=== PATIENT | female | born 1945 | race African-American/Black ===

== ENCOUNTER 2016-09-06 14:35 | Inpatient (IN) | payer MEDICARE ==
[~2016-09-06] VITALS: Ht 167.6 cm; Wt 73.8 kg
[~2016-09-06 14:35] MED LIST: CARDURA4 MG PO; CELEXA20 MG PO; METOPROLOL TAR100 M1 PO; NEPHRO-VITE RX1 TAB PO; NORVASC10 MG PO; PEPCID40 MG PO; PHOSLO667 MG PO
--- NOTE | 2016-09-06 15:15 | NUR ---
PT ARRIVED TO UNIT. VITALS SIGNS TAKEN. PT VERY HYPERTENSIVE @ 203/85 PT STATES SHE HASNT TAKEN HER BP MEDICATIONS AND REFUSES TO UNTIL AFTER SHE EATS. ORDERED PT TRAY AND WILL CONTINUE WITH ADMISSION WORK-UP.
[2016-09-06 15:25] VITALS: BP 203/85; BMI 27.0
[2016-09-06] MEDS ORDERED: SENSIPAR30 MG PO (15:25)
[2016-09-06 16:23] VITALS: BP 203/85
--- NOTE | 2016-09-06 17:26 | NUR ---
PT EATING AND TOOK HER HOME BP PILLS. BP NOW 184/79. PT DENIES ANY PAIN OR FURTHER NEEDS AT THIS TIME. CL IN REACH. WILL CTM.
[2016-09-06 17:27] VITALS: BP 184/79
[2016-09-06 21:31] VITALS: BP 177/73
[2016-09-07 00:11] VITALS: BP 169/71
[2016-09-07 05:06] LABS: BASOPHILS 0.3 % (0.0-2.0); EOSINOPHILS 1.8 % (0-7); HEMATOCRIT 30.4 % (36.0-48.0); HEMOGLOBIN 9.1 g/dL (12-16); IMMATURE GRANULOCYTES 0.6 % (0-5); LYMPHOCYTES 11.5 % (15-50); MCH 29.6 pg (26.0-34.0); MCHC 29.9 g/dL (31.0-37.0); MEAN PLATELET VOLUME 9.9 fL (7.4-10.4); MONOCYTES 18.9 % (2-11); NEUTROPHILS 66.9 % (40-80); RBC 3.07 10x6/uL (4.00-5.40); RDW 16.8 % (11.5-14.5); WBC 3.4 10x3/uL (4.8-10.8)
[2016-09-07 05:33] LABS: PLATELET COUNT 180 10x3/uL (130-400)
[2016-09-07 05:42] LABS: % SATURATION 37 % (15-55); IRON 44 ug/dl (35-150); TOTAL IRON BIND CAPACITY 116 ug/dl (260-445); UNSAT IRON BIND CAPACITY 72 ug/dl (150-375)
[2016-09-07 06:15] LABS: CALCIUM 10.1 mg/dL (8.5-10.1); CARBON DIOXIDE 30.9 mmol/L (21.0-32.0); CREATININE - SERUM 4.8 mg/dL (0.6-1.3); PHOSPHOROUS 5.6 mg/dL (2.5-4.9); POTASSIUM - SERUM 3.9 mmol/L (3.5-5.1); THYROID STIMULATING HORMONE 0.42 uIU/mL (0.36-3.74)
[2016-09-07 06:16] LABS: TROPONIN-I 0.06 ng/mL (0.000-0.060)
[2016-09-07 06:33] VITALS: BP 157/71
--- NOTE | 2016-09-07 06:35 | NUR ---
RESTING QUIETLY IN BED, NO DISTRESS NOTED
--- NOTE | 2016-09-07 06:52 | NUR ---
RECEIVED REPORT FROM SERVICER TRAVEL TRAILERS NURSE, GHULAM ALVARADO. PT IN BED, DENIES ANY NEEDS AT THIS TIME. CALL LIGHT IN REACH, NAD NOTED, WILL CONTINUE TO MONITOR.
[2016-09-07 07:52] VITALS: BP 176/76
--- NOTE | 2016-09-07 08:34 | NUR ---
ADMINISTERED MORNING MEDICATIONS, PT IS UP TO SIDE OF BED, PT DENIES ANY NEEDS AT THIS TIME.CALL LIGHT IN REACH, NAD NOTED, WILL CONTINUE TO MONITOR.
[2016-09-07 12:00] VITALS: BP 174/72
[2016-09-07 12:43] VITALS: Ht 167.6 cm; Wt 73.8 kg
--- NOTE | 2016-09-07 15:28 | NUR ---
WENT TO DO IN AND OUT CATH PT, REFUSED TO HAVE IN AND OUT CATH. STATED "THEY HURT AND I CAN STILL PEE". INFORMED PT THAT WE NEEDED TO COLLECT URINE SAMPLE AND THAT I WOULD PROVIDE HER WITH A HAT SO SHE COULD PEE AND WE COULD COLLECT URINE SAMPLE.
[2016-09-07 15:44] VITALS: BP 183/67
--- NOTE | 2016-09-07 16:24 | NUR ---
Patient Name: YUNIOR MADRIGAL Admission Status: Elective Accout number: [id number] Admission Date: 09-06-2016 : 1945 Admission Diagnosis: Attending: AKASH Current LOS: 1 Anticipated DC Date: 09-09-2016 Planned Disposition: Jail Facility Primary Insurance: MEDICARE A & B PLANNED EXTERNAL PROVIDER: [facility]: MEDICARE REHAB BED Discharge Planning Comments: * Is the patient Alert and Oriented? Yes 0 * How many steps to enter\exit or inside your home? 3 0 * PCP DR. MAGAÑA IN [place] 0 * Pharmacy [facility] IN [place] 0 * Preadmission Environment Home Alone 0 * ADLs Independent 0 * Equipment Cane Walker 0 * Other Equipment NO MEDICAL EQUIPMENT PROVIDER PREFERNCE 0 * List name and contact numbers for known caregivers / representatives who currently or will assist patient after discharge: DONAVON MADRIGAL , SON, 0 * Community resources currently utilized Other 0 * Please name any agencies selected above. [facility], [facility], OUTPATIENT DIALYSIS, [facility] IN [place], M/W/F, 0645AM 0 * Additional services required to return to the preadmission environment? Yes * Can the patient safely return to the preadmission environment? No 0 * Has this patient been hospitalized within the prior 30 days at any hospital? No 0 CM MET WITH PT IN ROOM TO DISCUSS DISCHARGE PLANNING AND NEEDS. PT REPORTS LIVING AT HOME INDEPENDENTLY AND ALONE. PT HAS CANE AND WALKER ONLY WITH NO MEDICAL EQUIPMENT PROVIDER PREFERENCE. PT HAD [facility] PRIOR TO ADMISSION. CM DISCUSSED AVAILABILITY OF HOME HEALTH, REHAB SERVICES AND MEDICAL EQUIPMENT. PT REPORTS BEING VERY WEAK AND NEEDING REHAB; PT WOULD LIKE REFERRAL SENT TO [facility] ([facility]) IN [place] FOR REHAB SERVICES. CM AGAIN DISCUSSED INPATIENT REHAB, PT IS NO INTERESTED IN INPATIENT REHAB HERE, WANTS [facility] IT IS NEW AND CLOSE TO HER SON'S HOME IN [place]. IMPORTANT MESSAGE FROM MEDICARE PROVIDED AND EXPLAINED. CM CALLED [facility], [address] [place] [phone], SPOKE TO AMY WHO REPORTS REHAB BED AVAILABLE AND WILL SCREEN PT FOR REHAB ADMISSION. CM FAXED REFERRAL TO [facility], . CM WAITING ADMISSION DETERMINATION FROM [facility] (NURSING HOME FACILITY) IN [place]. Lithographing Machine Operator: David Palacio
[2016-09-07 18:07] LABS: APPEARANCE HAZY (CLEAR); BILIRUBIN NEGATIVE (NEGATIVE); COLOR YELLOW (YELLOW); GLUCOSE NEGATIVE (NEGATIVE); KETONE NEGATIVE (NEGATIVE); LEUKOCYTE ESTERASE 1+ (NEGATIVE); NITRITE NEGATIVE (NEGATIVE); PROTEIN 1+ mg/dL (NEGATIVE); UROBILINOGEN NORMAL (NORMAL)
[2016-09-07 18:08] LABS: BACTERIA MANY /hpf (NONE SEEN); RED CELLS - URINE 0-5 /hpf (0-5)
--- NOTE | 2016-09-07 19:03 | NUR ---
SITTING UP IN BED, AAOX3, SKIN WARM AND DRY, RESP UNLABORED, MOOD PLEASANT, NO DISTRESS NOTED
[2016-09-07 20:33] VITALS: BP 174/63
[2016-09-08 00:32] VITALS: BP 150/75
[2016-09-08 04:42] VITALS: BP 150/103
--- NOTE | 2016-09-08 05:40 | NUR ---
RESTING QUIETLY IN BED, NO DISTRESS NOTED
[2016-09-08 05:44] LABS: BASOPHILS 0.3 % (0.0-2.0); HEMATOCRIT 31.6 % (36.0-48.0); HEMOGLOBIN 9.5 g/dL (12-16); IMMATURE GRANULOCYTES 0.6 % (0-5); LYMPHOCYTES 12.5 % (15-50); MCH 29.7 pg (26.0-34.0); MCHC 30.1 g/dL (31.0-37.0); MCV 98.8 fL (80.0-100.0); MONOCYTES 17.3 % (2-11); NEUTROPHILS 67.3 % (40-80); PLATELET COUNT 199 10x3/uL (130-400); RDW 16.7 % (11.5-14.5); WBC 3.5 10x3/uL (4.8-10.8)
[2016-09-08 06:13] LABS: ANION GAP 14.7 mmol/L (8-16); CALCIUM 9.4 mg/dL (8.5-10.1); CREATININE - SERUM 6.3 mg/dL (0.6-1.3); PHOSPHOROUS 5.2 mg/dL (2.5-4.9); POTASSIUM - SERUM 3.7 mmol/L (3.5-5.1)
--- NOTE | 2016-09-08 06:21 | NUR ---
PT LAYING IN BED NO DISTRESS OBSERVED CALL LIGHT INR EACH SRX2 BED LOW AND LOCKED WILL MONITOR
--- NOTE | 2016-09-08 06:52 | NUR ---
RECEIVED REPORT FROM THREE DIMENSIONAL MAP MODELER NURSE, GHULAM ALVARADO. PT UP TO SIDE OF BED, STATES THAT SHE IS HUNGRY, INFORMED HER THAT BREAKFAST SHOULD BE COMING AROUND 8 THAT IF SHE WANTED SOME GRAM CRACKER OR A SNACK, PT STATED THAT SHE WOULD BED FINE UNTIL BREAKFAST. PT DENIES ANY OTHER NEEDS AT THIS TIME. CALL LIGHT IN REACH, NAD NOTED, WILL CONTINUE TO MONITOR.
[2016-09-08 08:00] VITALS: BP 186/109
--- NOTE | 2016-09-08 08:19 | NUR ---
ADMINSITERED MORNING MEDICATIONS, PT UP TO SIDE OF BED EATING BREAKFAST. PT DENIES ANY NEEEDS AT THIS TIME. CALL LIGHT IN REACH, NAD NOTED, WILL CONTINUE TO MONITOR.
--- NOTE | 2016-09-08 10:15 | NUR ---
PT TRANSFERED TO DIALYSIS VIA WHEELCHAIR, NAD NOTED.
--- NOTE | 2016-09-08 11:33 | NUR ---
Patient Name: YUNIOR MADRIGAL Encounter No: [id number] : 1945 Primary Insurance: MEDICARE A & B Anticipated DC Date: 09-09-2016 Planned Disposition: Assisted Facility External Planned Provider: [facility], MEDICARE REHAB BED DCP follow-up note: CM RECEIVED CALL FROM AMY OF [facility], [address] [place] [phone], WHO REPORTS REHAB BED AVAILABLE AND WILLACCEPT PT FOR REHAB ADMISSION 09-09-16. CM FAXED REFERRAL TO [facility], . CM CALLED AND SPOKE TO DR. AVILEZ, NOTIFIED OF REHAB ACCEPTANCE FOR TOMORROW. CM SPOKE TO PT IN ROOM WHO IS IN AGREEMENT WITH REHAB DISCHARGE TOMORROW. FOR DISCHARGE, CM TO FAX DISCHARGE INFORMATION TO [facility], . NURSE REPORT TO BE CALLED TO [phone]. [facility] TO ARRANGE VAN GRINDING MACHINE OPERATOR FOR THE MORNING, 09-09-16. Pediatric Physician Assistant: David Palacio
--- NOTE | 2016-09-08 12:58 | NUR ---
CLEANED RIGHT THIGH SORE WITH WOUND CLEANSER AND APPLIED SMALL MEPILEX DRESSING TO SITE. SCD'S ON BILAT AT THIS TIME. PROVIDED PT WITH A CUP OF ICE. PT DENIES ANY NEEDS AT THIS TIME. CALL LIGHT IN REACH, NAD NOTED, WILL CONTINUE TO MONITOR.
--- NOTE | 2016-09-08 12:58 | NUR ---
[facility] - Patient's OPHD clinic is [facility] on MWF @ 6:45am. Per CM the patient is scheduled to d/c to [facility] tomorrow 09/09/16. OPHD has been notified to expect the patient back in-center on Tuesday. LORIE PRL
--- NOTE | 2016-09-08 14:31 | NUR ---
PT TRANSFERED BACK TO ROOM 2124, VIA WHEELCHAIR, NAD NOTED, PT DENIES ANY NEEDS AT THIS TIME. CALL LIGHT IN REACH, NAD NOTED, WILL CONTINUE TO MONITOR.
[2016-09-08 16:00] VITALS: BP 149/96
--- NOTE | 2016-09-08 16:09 | NUR ---
PT C/O REALLY BAD DRY HACKING COUGH, PAGED GABRIEL TRIMBLE RENAL LABORER CHEESEMAKING, WAITING ON HER TO CALL BACK.
--- NOTE | 2016-09-08 16:39 | NUR ---
DIALYSIS TREATMENT INITIATED VIA RIGHT AVG AT 1052 AND DISCONTINUED AT 1355. BLOOD FLOW RATE WAS ONLY 200. THEREFORE ONLY PROCESSING 33.3 LITERS OF BLOOD. REMOVED 2000 ML OF FLUID. POST VITALS: BP:179/987, HR: 80, TEMP: 98.6, RESP: 16.
--- NOTE | 2016-09-08 18:18 | NUR ---
CECIL MOJICA ON BILAT, PT DENIES ANY NEEDS AT THIS TIME. CALL LIGHT IN REACH, NAD NOTED, WILL CONTINUE TO MONITOR.
--- NOTE | 2016-09-08 19:03 | NUR ---
SITTING UP IN BED, AAOX3, SKIN WARM AND DRY, RESP UNLABORED, NO DISTRESS NOTED
[2016-09-08 20:00] VITALS: BP 169/81
--- NOTE | 2016-09-09 03:56 | NUR ---
CHILLING HOOD OPERATOR AT BEDSIDE TO OBTAIN VITALS, CALL LIGHT IN REACH. WILL CONTINUE WITH PLAN OF CARE.
[2016-09-09 04:00] VITALS: BP 173/69
[2016-09-09 06:11] LABS: BASOPHILS 0.3 % (0.0-2.0); EOSINOPHILS 2.1 % (0-7); HEMOGLOBIN 10.1 g/dL (12-16); IMMATURE GRANULOCYTES 0.5 % (0-5); LYMPHOCYTES 13.8 % (15-50); MCH 29.3 pg (26.0-34.0); MCHC 29.7 g/dL (31.0-37.0); MCV 98.6 fL (80.0-100.0); MEAN PLATELET VOLUME 10.5 fL (7.4-10.4); MONOCYTES 17.4 % (2-11); NEUTROPHILS 65.9 % (40-80); PLATELET COUNT 192 10x3/uL (130-400); RBC 3.45 10x6/uL (4.00-5.40); RDW 16.5 % (11.5-14.5); WBC 3.8 10x3/uL (4.8-10.8)
--- NOTE | 2016-09-09 06:24 | NUR ---
RESTING QUIETLY IN BED, NO DISTRESS NOTED
[2016-09-09 06:32] LABS: ANION GAP 13.7 mmol/L (8-16); CALCIUM 10.3 mg/dL (8.5-10.1); CARBON DIOXIDE 30.5 mmol/L (21.0-32.0); CREATININE - SERUM 5.8 mg/dL (0.6-1.3); PHOSPHOROUS 4.4 mg/dL (2.5-4.9); POTASSIUM - SERUM 4.2 mmol/L (3.5-5.1)
--- NOTE | 2016-09-09 07:48 | NUR ---
PT SITTING UP IN BED DENIES NEEDS AT THIS TIME WILL CONTINUE TO MONITOR.
[2016-09-09 08:14] VITALS: BP 169/76
--- NOTE | 2016-09-09 08:46 | NUR ---
Patient Name: YUNIOR MADRIGAL Encounter No: [id number] : 1945 Primary Insurance: MEDICARE A & B Anticipated DC Date: 09-09-2016 Planned Disposition: Assisted Facility External Planned Provider: [facility], ASSISTED FACILITY; MEDICARE REHAB BED DCP follow-up note: FAVIO CALLED AMY OF [facility], [address] [place] [phone], WHO REPORTS REHAB BED AVAILABLE AND WILL ACCEPT PT FOR REHAB ADMISSION TODAY, VAN ON THE WAY NOW. CM FAXED DISCHARGE INFORMATION TO [phone]. CM SPOKE TO PT IN ROOM WHO IS IN AGREEMENT WITH REHAB DISCHARGE TODAY. NURSE REPORT TO BE CALLED TO [phone]. [facility] VAN FISH CAKE MAKER AT [place] 1000 AM. Bleacher [employer]: David Palacio
[2016-09-09] MEDS ORDERED: RENVELA0.8 GM PO (09:04)
[2016-09-09] MEDS ORDERED: NORVASC5 MG PO (09:05)
[2016-09-09] MEDS ORDERED: HYDRALAZINE HCL50 MG PO (09:06)
[2016-09-09] MEDS ORDERED: LEVAQUIN250 MG PO (09:18)
--- NOTE | 2016-09-09 10:25 | NUR ---
CALLED REPORT TO [facility]. [facility] HERE TO GET PT WHEELED PT OUT ALONG WITH ALL OF HER BELONGINGS. GAVE YELLOW ENVELOPE WITH DC PAPERS TO [facility] EMPLOYEES.
--- NOTE | 2016-09-10 06:29 | DS ---
PATIENT:YUNIOR MADRIGAL :[birth year] MEDICAL RECORD: [id number] DISCHARGE SUMMARY ADMISSION DATE: 09/06/16 DISCHARGE DATE: 09/09/16 HISTORY OF PRESENT ILLNESS: Ms. Madrigal is a pleasant 70-year-old black female that dialyzes in [place], brought to [facility] by the family with findings of confusion and fatigue post-dialysis with no history of trauma, etc. HOSPITAL COURSE: The patient was found to have urinary tract infection, begun on antibiotic therapy. Chest x-ray was stable with simplification of her medication regime. Her mental status and fatigue also improved. Thyroid functions were normal and she was back to baseline at the time of transfer to the [facility]. She underwent acute dialysis uneventfully. Chest x-ray was stable and no other major issues involved. DISCHARGE DIAGNOSES: 1. Urinary tract infection. 2. Drug side effect. 3. End-stage renal disease. 4. Hypertension. 5. Chronic anemia. PLAN: The patient will be discharged today to the [facility]. She will resume dialysis in [place] on a Tuesday, Tuesday and Tuesday schedule. We will see her on a weekly basis. She will resume her renal diet. DISCHARGE MEDICATIONS: Nephro-Bo 1 daily, Levaquin 250 daily for 3 more days. She will resume her erythropoietin in the dialysis unit. She will be on amlodipine 5 mg b.i.d., Pepcid 40 mg daily, Renvela 800 t.i.d., metoprolol 100 b.i.d. and she will also be on hydralazine 50 b.i.d. TRANSINT:[id number] Voice Confirmation ID: [id number] DOCUMENT ID: [id number] CHANDRIKA AVILEZ MD at 0629 CC: [id number] DICTATION DATE: 09/09/16 0704 AUTISM SPECIALIST: 09/09/16 0735 DIS IN 09/09/16 [place] [id number]
--- NOTE | 2016-09-27 15:45 | EC ---
PATIENT:YUNIOR MADRIGAL DATE OF SERVICE: 09/06/16 SEX: F MEDICAL RECORD: [id number] DATE OF : [birth year] LOCATION:D. D.212 AGE OF PATIENT: 70 ADMISSION DATE: 09/06/16 REFERRING PHYSICIAN: INTERPRETING PHYSICIAN: LAURA RASCON M.D. ECHOCARDIOGRAM REPORT ECHO CHARGES 4 ECHO COMPLETE CLINICAL DIAGNOSIS: MURMUR ECHOCARDIOGRAPHIC MEASUREMENTS (adult normal given) AC root (d.<3.7cm) 3.7 LV Septum d (<1.2 cm> 2.0 Valve Excursion 1.5 LV Septum (systole) 2.2 Left Atria (s.<4.0cm> 5.7 LVPW d(<1.2cm) 1.6 RV (d.<2.3cm) 5.1 LVPW (sytole) 1.9 LV diastole(<5.6CM) 6.5 MV E-F(>70mm/sec) LV systole 3.3 LVOT Diameter 1.4 MV exc.(>10mm) 1.6 Est.ejection fraction (50-75%) Pericardial Effusion Y DOPPLER: LVIT A 129 E 146 LA RVSP 46 LVOT 103 AOP1/2T 807 Asc. Ao 296 RVOT 123 RA 157 PA AV Gradient Peak 35.15 AV Mean 15.76 AV Area 0.6 MV Gradient Peak 13.70 MV Mean 5.73 MV Area COMMENTS: Tin Flopper: Karley MANZO Renewals Specialist:2 Dr. Rascon TAPE# PACS DATE OF SERVICE: 09/07/2016 REFERRING PHYSICIAN: Louie Teran MD INDICATION: Murmur. DESCRIPTION: Left ventricle is mildly dilated. Left ventricular hypertrophy is present. Estimated ejection fraction is in the order of 55%. Mitral valve leaflets are thickened. There is mild regurgitation noted. Left atrium is moderately dilated. The aortic valve is trileaflet. Leaflets are thickened. ECHOCARDIOGRAM REPORT [id number] YUNIOR MADRIGAL The peak gradient across the valve is ____ mmHg with a mean of 50 mmHg. The valve area was calculated at 0.6 cm-squared. Right ventricle is moderately dilated. Tricuspid valve is structurally normal. There is mild regurgitation seen. Right ventricular systolic pressure is elevated at 46 mmHg. There is a small pericardial effusion noted. There is no evidence of any tamponade. There is no evidence of any signs of volume overload. It is not concentric. IMPRESSION: 1. Left ventricular hypertrophy with preserved ejection fraction of 55%. 2. Mild mitral regurgitation with mild mitral stenosis. 3. Moderate aortic stenosis. 4. Mild tricuspid regurgitation. TRANSINT:[id number] Voice Confirmation ID: [id number] DOCUMENT ID: [id number] LAURA RASCON M.D. at 1545 CC: [id number] DICTATION DATE: 09/07/16 1619 WEB SYSTEMS DEVELOPER: 09/08/16 0110 DIS IN 09/09/[address] [facility] [address] [place] [address]
== END 2016-09-09 10:27 | DRG 947 ==
LOC: D.M2 14:35
PROVIDERS: Internal Medicine Nephrology; ADMIT Internal Medicine Nephrology
PROC: 5A1D60Z (ICD-10-PCS; principal; 2016-09-06)
DX: R53.1 Weakness (principal); N18.6 End stage renal disease; N39.0 Urinary tract infection, site not specified; I12.0 Hypertensive chronic kidney disease with stage 5 chronic kidney disease or end stage renal disease; T50.995A Adverse effect of other drugs, medicaments and biological substances, initial encounter; Z99.2 Dependence on renal dialysis; J44.9 Chronic obstructive pulmonary disease, unspecified; F32.9 Major depressive disorder, single episode, unspecified; R41.0 Disorientation, unspecified; Z86.73 Personal history of transient ischemic attack (TIA), and cerebral infarction without residual deficits

== ENCOUNTER 2017-01-11 14:44 | Inpatient (IN) | payer MEDICARE ==
[~2017-01-11] VITALS: Ht 167.6 cm; Wt 63.5 kg
--- NOTE | ~2017-01-11 | DS ---
PATIENT:YUNIOR MADRIGAL :[birth year] MEDICAL RECORD: [id number] DISCHARGE SUMMARY ADMISSION DATE: 01/11/17 DISCHARGE DATE: 01/14/17 REASON FOR ADMISSION: Left upper extremity weakness and change in function. She was evaluated in the [facility] with watershed distribution of the CVA with left-sided weakness. She is evaluated here by cardiovascular surgery and too high risk for intervention. She had declined Lovenox and I had a discussion with her son yesterday regarding Coumadin versus Plavix and aspirin. He made a decision and does understand that she could have another CVA either way whether taking Coumadin, Plavix or aspirin. Coumadin would have been more prevented, but does come with higher risks, he decided with just aspirin and Plavix. REVIEW OF SYSTEMS: She is 139/64, 99 temp, 74 pulse, 18 respiratory rate. She follows commands and offers her right arm for dialysis. Her dialysis access in the arm is clean with no sign of infection. Chest is regular rhythm. S1, S2. No change in her upper extremity and lower extremity weakness on the stroke affected side. Abdomen is nontender. Trace lower extremity edema. All review of systems are negative according to the patient except for generalized weakness. We have not seen any further symptoms of loose stools that were mentioned on admission. PLAN: We will continue her ____ on medications as we are just sending her down to rehab. No changes in her meds. Continue renal diet and therapy per rehab. Spent greater than 30 minutes with dictation and medication list. TRANSINT:[id number] Voice Confirmation ID: [id number] DOCUMENT ID: [id number] JARED MATA MD CC: [id number] DICTATION DATE: 01/14/17 115 SILK SOAKER: 01/15/17 0509 DIS IN 01/14/17 [facility] [address] [place] [address]
[~2017-01-11 14:44] MED LIST changes: +HYDRALAZINE HCL50 MG PO; +LEVAQUIN250 MG PO; +NORVASC5 MG PO; +RENVELA0.8 GM PO; +SENSIPAR30 MG PO
[2017-01-11 15:41] LABS: BASOPHILS 0.5 % (0-2); EOSINOPHILS 3.1 % (0-7); HEMATOCRIT 35.6 % (36.0-48.0); HEMOGLOBIN 10.6 g/dL (12-16); IMMATURE GRANULOCYTES 0.7 % (0-5); LYMPHOCYTES 15.5 % (15-50); MCH 31.5 pg (26.0-34.0); MCHC 29.8 g/dL (31.0-37.0); MEAN PLATELET VOLUME 10.1 fL (7.4-10.4); MONOCYTES 10.4 % (2-11); NEUTROPHILS 69.8 % (40-80); PLATELET COUNT 159 10x3/uL (130-400); RBC 3.36 10x6/uL (4.00-5.40); RDW 16.7 % (11.5-14.5); WBC 5.5 10x3/uL (4.8-10.8)
[2017-01-11 16:01] LABS: ANION GAP 13.5 mmol/L (8-16); BILIRUBIN - TOTAL 0.62 mg/dL (0.2-1.3); CALCIUM 10.1 mg/dL (8.5-10.1); CREATININE - SERUM 5.7 mg/dL (0.6-1.3); POTASSIUM - SERUM 4.5 mmol/L (3.5-5.1); PROTEIN - SERUM 6.8 g/dL (6.4-8.2)
[2017-01-12 02:49] VITALS: BP 148/75; BMI 22.9
[2017-01-12 09:01] VITALS: BP 154/88
[2017-01-12 12:00] VITALS: BP 154/64
[2017-01-12 19:00] VITALS: BP 127/67
[2017-01-13 04:00] VITALS: BP 141/77
[2017-01-13 06:29] LABS: BASOPHILS 0.5 % (0-2); EOSINOPHILS 3.3 % (0-7); HEMATOCRIT 33.3 % (36.0-48.0); IMMATURE GRANULOCYTES 0.7 % (0-5); LYMPHOCYTES 20.5 % (15-50); MCH 31.6 pg (26.0-34.0); MCV 105.4 fL (80.0-100.0); MEAN PLATELET VOLUME 10.9 fL (7.4-10.4); MONOCYTES 10.6 % (2-11); NEUTROPHILS 64.4 % (40-80); PLATELET COUNT 180 10x3/uL (130-400); RBC 3.16 10x6/uL (4.00-5.40); RDW 16.4 % (11.5-14.5); WBC 5.5 10x3/uL (4.8-10.8)
[2017-01-13 07:27] LABS: CALCIUM 9.8 mg/dL (8.5-10.1); CARBON DIOXIDE 29.7 mmol/L (21.0-32.0); T4 THYROXIN - FREE 1.37 ng/dL (0.76-1.46); THYROID STIMULATING HORMONE 1.31 uIU/mL (0.36-3.74)
[2017-01-13 07:31] LABS: POTASSIUM - SERUM 3.7 mmol/L (3.5-5.1)
[2017-01-13 08:44] VITALS: BP 139/64
[2017-01-13 12:57] VITALS: BP 114/69
[2017-01-13 14:55] VITALS: Ht 167.6 cm; Wt 63.5 kg
[2017-01-13 17:00] VITALS: BP 110/77
[2017-01-13 20:00] VITALS: BP 115/38
[2017-01-14] VITALS: BP 137/25
[2017-01-14 04:00] VITALS: BP 140/67
[2017-01-14 06:16] LABS: BASOPHILS 0.1 % (0-2); EOSINOPHILS 2.3 % (0-7); HEMATOCRIT 32.2 % (36.0-48.0); HEMOGLOBIN 9.9 g/dL (12-16); IMMATURE GRANULOCYTES 0.4 % (0-5); LYMPHOCYTES 7.4 % (15-50); MCH 31.5 pg (26.0-34.0); MCHC 30.7 g/dL (31.0-37.0); MCV 102.5 fL (80.0-100.0); MEAN PLATELET VOLUME 10.6 fL (7.4-10.4); MONOCYTES 19.5 % (2-11); NEUTROPHILS 70.3 % (40-80); PLATELET COUNT 144 10x3/uL (130-400); RBC 3.14 10x6/uL (4.00-5.40); RDW 16.3 % (11.5-14.5)
[2017-01-14 06:21] LABS: ANION GAP 16.1 mmol/L (8-16); CALCIUM 9.5 mg/dL (8.5-10.1); POTASSIUM - SERUM 4.1 mmol/L (3.5-5.1)
[2017-01-14 06:26] LABS: CREATININE - SERUM 6.7 mg/dL (0.6-1.3)
[2017-01-14 08:58] VITALS: BP 109/56
[2017-01-14 11:43] VITALS: BP 117/57
[2017-01-14] MEDS ORDERED: PLAVIX75 MG PO (17:08)
[2017-01-14] MEDS ORDERED: PROCRIT/EP4000 UNITS SQ (17:08)
[2017-01-14] MEDS ORDERED: HEPARIN SO1000 UNIT/ IV ×2 (17:09→17:10)
[2017-01-14] MEDS ORDERED: BUMINATE50 ML IV (17:09)
[2017-01-14] MEDS ORDERED: BAYER CHEWABLE81 MG PO (17:11)
[2017-01-14] MEDS ORDERED: SODIUM CL 0.91000 ML IV (17:12)
[2017-01-14] MEDS ORDERED: LIDOCAINE-PRILOC5 GM TP (17:14)
== END 2017-01-14 17:53 | DRG 67 ==
LOC: D.ER 14:44 → D.MS 17:33
PROVIDERS: Emergency Medicine; ADMIT Internal Medicine Nephrology
PROC: 5A1D00Z (ICD-10-PCS; principal; 2017-01-12)
DX: I65.23 Occlusion and stenosis of bilateral carotid arteries (principal); N18.6 End stage renal disease; I12.0 Hypertensive chronic kidney disease with stage 5 chronic kidney disease or end stage renal disease; I82.C11 Acute embolism and thrombosis of right internal jugular vein; I69.354 Hemiplegia and hemiparesis following cerebral infarction affecting left non-dominant side; R53.1 Weakness; Z99.2 Dependence on renal dialysis; I65.09 Occlusion and stenosis of unspecified vertebral artery; I69.398 Other sequelae of cerebral infarction; K21.9 Gastro-esophageal reflux disease without esophagitis; F32.9 Major depressive disorder, single episode, unspecified; J44.9 Chronic obstructive pulmonary disease, unspecified; I73.9 Peripheral vascular disease, unspecified; D63.1 Anemia in chronic kidney disease

== ENCOUNTER 2017-01-14 18:33 | Inpatient (IN) | payer MEDICARE ==
[~2017-01-14] VITALS: Ht 167.6 cm; Wt 61.1 kg
--- NOTE | ~2017-01-14 | RHP ---
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 HISTORY OF PRESENT ILLNESS: The patient admitted to inpatient rehab for watershed. She had an infarct to the right cerebral hemisphere with left-sided weakness. She is a 71-year-old female with a history of end-stage renal disease on hemodialysis. She has become more confused and weak for the past couple of months. She recently had a CVA in December and did not receive any treatment at that time for CVA and since then, has been much weaker and confused. She is now incontinent of stool. She was brought to the ER and evaluated, was admitted with generalized weakness and AMS. She lives at home with her son and was able to perform her own ADLs and did short distance ambulation with use of assistance device and also usable wheelchair prior to her CVA in December. She is currently max to total assist for ADLs and max assist to total assist for mobility. She and her son would like for the patient to strengthen up here so that she can return home and live with her son. COMORBIDITIES: Include oropharyngeal dysphagia, end-stage renal disease, COPD, mild CHF, hypertension, depression, weakness, peripheral vascular disease, altered mental status, thrombocytosis, carotid stenosis and anemia. PAST MEDICAL HISTORY: Significant for end-stage renal disease, CVA, Cowart's palsy, difficulty swallowing, hypertension, NC, heart valve replacement, chronic cough, acid reflux, depression and carotid stenosis. PAST SURGICAL HISTORY: Includes gallbladder surgery, D&C and hemodialysis access. ALLERGIES: No known drug allergies. CURRENT MEDICATIONS: Include Procrit 12,000 units subQ 3 times a week, sevelamer 1600 mg t.i.d. with meals, folic acid 1 mg daily, Pepcid 40 mg daily, Plavix 75 mg daily, aspirin chewable 81 mg daily, metoprolol 100 mg b.i.d., Emla to use topically as needed, amlodipine 5 mg b.i.d., albumin 12.5 grams on dialysis days and MiraLax 17 grams in 8 ounces of water daily. HABITS: No alcohol or tobacco use. FAMILY HISTORY: Noncontributory. SOCIAL HISTORY: The patient hopes to return back home with her son and get back to her prior level of functioning. REVIEW OF SYSTEMS: GENERAL: Does complain of weakness and fatigue. HEENT: Denies cold, cough, or congestion. CARDIOVASCULAR: Denies chest pain. HISTORY AND PHYSICAL [id number] YUNIOR MADRIGAL PHYSICAL EXAMINATION: VITAL SIGNS: Stable, afebrile. GENERAL: An elderly female, in no acute distress, alert upon exam. HEENT: Normocephalic and atraumatic. Mucosa moist. NECK: Supple. No lymphadenopathy. LUNGS: Clear at this time. HEART: Regular rate and rhythm. ABDOMEN: Benign. EXTREMITIES: No clubbing, cyanosis or edema. NEUROLOGIC: Seems intact. LABORATORY DATA: Her white count is 8.5, H&H of 11 and 36, and platelet count was noted be 209. Sodium 136, potassium 4.4, BUN and creatinine of 21 and 5.1 and blood sugars noted to be 97. ASSESSMENT: This is a 71-year-old female patient, who presents secondary to a watershed infarct in the right cerebral hemisphere. The patient has potential to make improvement. We instituted the following multidisciplinary therapies including to, but not limited to physical, occupational, respiratory, speech, nutritional services, prosthetics and orthotics. Given her complex condition and risk for more complications, rehabilitation services cannot be provided at a low level of care such as a alf facility. PLAN: 1. Admit to [facility] rehab for intensive inpatient therapy to include the following disciplines: A. Physical therapy to improve gait, all transfer skills and bed mobility to a modified level. B. Occupational therapy to improve activities of daily living modified independent level. C. Case management to assist with discharge planning and placement options. D. Nutrition to assist with nutritional needs. E. Rehabilitation nursing to assist in monitoring the patient's underlying medical conditions and to assist with any type of bowel or bladder management. 2. The patient's current medication and medical care will be continued. 3. The patient will be placed on standard fall precautions. 4. The patient's estimated length of stay is approximately 7-10 days. 65. We will go ahead and follow right along with renal during this patient's stay and treat appropriately. TRANSINT:[id number] Voice Confirmation ID: [id number] DOCUMENT ID: [id number] REBECCA notes whether there has been none or any medical/functional change since admission: - REBECCA attests patient continues to be appropriate for IRF: - HISTORY AND PHYSICAL [id number] YUNIOR MADRIGAL SCOTT MD CC: [id number] DICTATION DATE: 01/15/17 172 PATIENT SAFETY MANAGER: 01/15/171921 ADM IN [place] [id number] [place] [id number]
[~2017-01-14 18:33] MED LIST changes: +BAYER CHEWABLE81 MG PO; +BUMINATE50 ML IV; +HEPARIN SO1000 UNIT/ IV; +LIDOCAINE-PRILOC5 GM TP; +PLAVIX75 MG PO; +PROCRIT/EP4000 UNITS SQ; +SODIUM CL 0.91000 ML IV
--- NOTE | 2017-01-14 19:15 | NUR ---
PT. CAME TO THE FLOOR AT 1830 PER REPORT AND WILL BE ADMITTED SOON ALL PAPERS ARE AVAILABLE. MEDICATIONS HAVE BEEN REVIEWED AND WILL BE ORDERED PER MD'S ORDERS. INFORMED PT. OF ADMISSION PROCESS AND SHE ACKNOWLEDGED UNDERSTANDING. CALL LIGHT WITHIN HER REACH FOR NEEDS SHE DENIES ANY NEEDS AT THIS TIME.
--- NOTE | 2017-01-14 23:17 | NUR ---
PT. IN BED WITH HOB UP FOR COMFORT LYING ON HER LEFT SIDE. EYES CLOSED AND RESP. DEEP AND EVEN. CALL LIGHT WITHIN REACH.
--- NOTE | 2017-01-15 00:28 | NUR ---
PT. IN BED LYING ON HER LEFT SIDE PREVIOUSLY REQUESTED. HOB UP FOR COMFORT WITH EYES CLOSED AND RESP. DEEP AND EVEN. CALL LIGHT WITHIN REACH.
[2017-01-15 00:34] VITALS: BP 121/70; BMI 20.7
[2017-01-15 01:09] VITALS: BP 121/70
--- NOTE | 2017-01-15 03:27 | NUR ---
PT. IN BED WITH HOB UP FOR COMFORT WITH EYES CLOSED AND RESP. EVEN. CALL LIGHT WITHIN REACH.
--- NOTE | 2017-01-15 06:03 | NUR ---
MADE PT. SOME NECTAR THICK WATER AND SHE REFUSED TO DRINK ANY AT ALL. ASKED IF SHE WAS READY TO TURN ONTO THE RIGHT SIDE AND SHE SHOOK HER HEAD NO. ASKED IF SHE NEEDED ANYTHING AND SHE SHOOK HER HEAD NO. CALL LIGHT WITHIN REACH.
[2017-01-15 09:07] LABS: BASOPHILS 0.1 % (0-2); EOSINOPHILS 0.6 % (0-7); HEMATOCRIT 36.3 % (36.0-48.0); IMMATURE GRANULOCYTES 0.2 % (0-5); LYMPHOCYTES 7.4 % (15-50); MCH 31.5 pg (26.0-34.0); MCHC 30.3 g/dL (31.0-37.0); MONOCYTES 18.5 % (2-11); NEUTROPHILS 73.2 % (40-80); PLATELET COUNT 209 10x3/uL (130-400); RBC 3.49 10x6/uL (4.00-5.40); RDW 16.3 % (11.5-14.5); WBC 8.5 10x3/uL (4.8-10.8)
[2017-01-15 09:18] LABS: ANION GAP 15.8 mmol/L (8-16); CALCIUM 10.6 mg/dL (8.5-10.1); CARBON DIOXIDE 27.6 mmol/L (21.0-32.0); CREATININE - SERUM 5.1 mg/dL (0.6-1.3); POTASSIUM - SERUM 4.4 mmol/L (3.5-5.1)
[2017-01-15 11:57] VITALS: Ht 167.6 cm; Wt 61.1 kg
[2017-01-15 16:34] VITALS: BP 132/82
--- NOTE | 2017-01-15 19:33 | NUR ---
PT RECEIVED IN BED WITH EYES CLOSED AND CHEST RISING. NO SIGN/SYMPTOMS OF DISTRESS NOTED. CALL LIGHT IN REACH. WILL CONTINUE TO OBSERVE.
[2017-01-15 21:13] VITALS: BP 115/63
--- NOTE | 2017-01-15 23:13 | NUR ---
PT IN BED WITH EYES CLOSED AND CHEST RISING. AROUSES TO VERBAL STIMULI. NO SIGN/SYMPTOMS OF DISTRESS NOTED. CALL LIGHT IN REACH. WILL CONTINUE TO OBSERVE.
--- NOTE | 2017-01-16 02:32 | NUR ---
PT IN BED WITH EYES CLOSED AND CHEST RISING. NO SIGN/SYMPTOMS OF DISTRESS NOTED. CALL LIGHT IN REACH. WILL CONTINUE TO OBSERVE.
[2017-01-16 02:46] VITALS: BP 108/64
[2017-01-16 06:14] VITALS: BP 112/64
--- NOTE | 2017-01-16 06:40 | NUR ---
PT IN BED WITH EYES CLOSED AND CHEST RISING. AROUSES TO VERBAL STIMUIL. NO CONCERNS NOTED AT THIS TIME. CALL LIGHT IN REACH.
[2017-01-16 08:10] VITALS: BP 112/31
--- NOTE | 2017-01-16 08:16 | NUR ---
SITTING UP ROOM EATING BREAKFAST CALL LIGHT IN REACH
--- NOTE | 2017-01-16 10:12 | NUR ---
PT IS RESTING IN BED WITH EYES CLOSED. OPENS EYES TO VERBAL STIMULI. NO ATTEMPT TO COMMUNICATE NOTED. RIGHT ARM FISTULA NOTED. PT ASSISTED TO TURN AND REPOSITION IN BED. NO OUTPUT NOTED. PT REFUSED ANY BREAKFAST OR MEDS THIS AM. SR'S ARE UP X 3 IN BED. CALL LIGHT AND BEDSIDE TABLE ARE WITHIN EASY REACH.
--- NOTE | 2017-01-16 12:26 | NUR ---
PT IS RESTING IN BED WITH EYES CLOSED. OPENS EYES TO SOME SPEECH, BUT DOES NOT ATTEMPT TO COMMUNICATE. I WILL ATTEMPT TO FEED PT.
--- NOTE | 2017-01-16 15:04 | NUR ---
PT IS RESTING IN BED WITH EYES CLOSED. ASSISTED TO TURN AND REPOSITION WITH TOTAL CARE. PT DIDNT VOICE ANY COMPLAINT, BUT HAS NOT SHOWN ANY EMOTIONAL RESPONSE THIS ENTIRE SHIFT. WILL MONITOR CLOSELY.
--- NOTE | 2017-01-16 17:50 | NUR ---
PT ASSISTED TO TURN AND REPOSITION IN BED WITH TOTAL ASSIST. PT DOES NOT COOPERATE WITH ANY CARE. NO INCONTINENCE NOTED, BUT BED PAD WAS DAMP FROM SWEATING. PAD CHANGED. I ATTEMPTED TO ASSIST PT TO EAT SOME SUPPER, WITHOUT SUCCESS. PT REFUSES TO OPEN MOUTH AT ALL. HER EYES WERE OPEN AND LOOKING AT ME FOR THE FIRST TIME TODAY.
--- NOTE | 2017-01-16 19:25 | NUR ---
PT RECEIVED IN BED WITH EYES CLOSED AND CHEST RISING. AROUSED TO VERBAL STIMULI. VOICED SOMETHING BUT WAS NO UNDERSTANDABLE DUE TO GARBLED SPEECH. PT REACHED OUT HAND AND HELD THIS NURSE'S HAND FOR A FEW SECONDS AND LET GO. NO SIGN/SYMPTOMS OF DISTRESS NOTED. CALL LIGHT IN REACH. WILL CONTINUE TO OBSERVE.
[2017-01-16 21:51] VITALS: BP 108/57
[2017-01-17 01:18] VITALS: BP 115/58
--- NOTE | 2017-01-17 01:29 | NUR ---
PT IN BED WITH EYES CLOSED AND CHEST RISING. AROUSES TO VERBAL STIMULI. NO SIGN/SYMPTOMS OF DISTRESS NOTED. CALL LIGHT IN REACH. WILL CONTINUE TO OBSERVE.
--- NOTE | 2017-01-17 04:31 | NUR ---
PT IN BED WITH EYES CLOSED AND CHEST RISING. NO SIGN/SYMPTOMS OF DISTRESS NOTED. CALL LIGHT IN REACH. WILL CONTINUE TO OBSERVE.
[2017-01-17 06:23] VITALS: BP 117/58
[2017-01-17 06:53] LABS: BASOPHILS 0.1 % (0-2); EOSINOPHILS 0.1 % (0-7); HEMATOCRIT 33.5 % (36.0-48.0); HEMOGLOBIN 10.1 g/dL (12-16); IMMATURE GRANULOCYTES 0.3 % (0-5); MCH 31.5 pg (26.0-34.0); MCHC 30.1 g/dL (31.0-37.0); MCV 104.4 fL (80.0-100.0); MEAN PLATELET VOLUME 10.5 fL (7.4-10.4); MONOCYTES 11.7 % (2-11); NEUTROPHILS 79.8 % (40-80); RBC 3.21 10x6/uL (4.00-5.40); RDW 16.3 % (11.5-14.5)
[2017-01-17 06:55] LABS: PLATELET COUNT 253 10x3/uL (130-400); WBC 10.7 10x3/uL (4.8-10.8)
[2017-01-17 07:17] LABS: ANION GAP 18.7 mmol/L (8-16); CALCIUM 10.6 mg/dL (8.5-10.1); CARBON DIOXIDE 27.3 mmol/L (21.0-32.0); CREATININE - SERUM 8.9 mg/dL (0.6-1.3); PHOSPHOROUS 8.9 mg/dL (2.5-4.9)
--- NOTE | 2017-01-17 08:15 | NUR ---
PT RESTING IN BED WITH EYES OPEN CALL LIGHT IN REACH WILL MONITER
--- NOTE | 2017-01-17 10:28 | NUR ---
PATIENT ADMITTED TO REHAB 01/14/17. PATIENTS PCP IS DR. MAGAÑA IN [place]. SHE HAS USED [facility] IN THE PAST. SHE LIVES WITH HER SON. SPOKE WITH HER SON THIS AM DUE TO THE FACT THAT HIS MOTHER UNABLE TO DO 3 HOURS OF THERAPY IN THIS ACUTE SEETING. HE WOULD LIKE REFFERAL FAXED TO [facility] IN [place]. HIS CELL PHONE NUMBER IS . WILL CONTINUE TO FOLLOW WITH PATIENT .
--- NOTE | 2017-01-17 17:08 | NUR ---
PT RESTING IN BED WITH EYES OPEN CALL LIGHT IN REACH WILL MONITER
--- NOTE | 2017-01-17 18:13 | NUR ---
PT RESTING IN BED, EYES CLOSED. BED LOW. CL IN REACH.
--- NOTE | 2017-01-17 19:52 | NUR ---
pt resting with eyes closed.
[2017-01-17 21:12] VITALS: BP 106/58
--- NOTE | 2017-01-17 21:45 | NUR ---
HELP PM BLOOD PRESSURE MEDICATION R/T BP.
--- NOTE | 2017-01-18 00:10 | NUR ---
PT RESTING QUIETLY.
--- NOTE | 2017-01-18 04:13 | NUR ---
APPEARS TO HAVE EYES HALF OPEN, PT WON'T VERBALIZE. RESPIRATIONS SHALLOW AND REGULAR.
[2017-01-18 05:43] VITALS: BP 98/60
[2017-01-18 05:50] LABS: BASOPHILS 0.1 % (0-2); EOSINOPHILS 0 % (0-7); HEMATOCRIT 37.2 % (36.0-48.0); HEMOGLOBIN 11.3 g/dL (12-16); IMMATURE GRANULOCYTES 0.6 % (0-5); LYMPHOCYTES 9.2 % (15-50); MCH 32.2 pg (26.0-34.0); MCHC 30.4 g/dL (31.0-37.0); MEAN PLATELET VOLUME 11.2 fL (7.4-10.4); MONOCYTES 13.1 % (2-11); PLATELET COUNT 288 10x3/uL (130-400); RBC 3.51 10x6/uL (4.00-5.40); RDW 16.7 % (11.5-14.5)
[2017-01-18 06:10] LABS: ANION GAP 20.1 mmol/L (8-16); CALCIUM 11.7 mg/dL (8.5-10.1); CARBON DIOXIDE 26.9 mmol/L (21.0-32.0); PHOSPHOROUS 8.7 mg/dL (2.5-4.9)
--- NOTE | 2017-01-18 07:30 | NUR ---
EYES CLOSED, RESP EFFORT NON LABORED. BED ALARM IN USE. CALL LIGHT IN REACH
--- NOTE | 2017-01-18 08:14 | NUR ---
ATTEMPTED TO FEED PT BREAKFAST. SHE WOULD NOT OPEN MOUTH. WILL OPEN EYES AND BRIEFLY LOOK AROUND BUT DOES NOT FOLLOW COMMANDS. NO S/S DISTRESS. CALL LIGHT IN REACH
--- NOTE | 2017-01-18 10:16 | NUR ---
RESP EFFORT MORE LABORED AND 44-48/MIN. DOES NOT FOLLOWS COMMANDS OR ANSWER QUESTIONS. WILL OPEN EYES BRIEFLY TO PAINFUL STEMULI. V/S 81/53, HR 121, SATS 95% ON RA. DR WELSH CALLED.
--- NOTE | 2017-01-18 10:45 | NUR ---
CALL PLACED TO DR WELSH, LEFT MESSAGE. PT CONDITION UNCHANGED MOSTLY. 86/54, HR 119, RESP 48. NON RESPONSIVE.
--- NOTE | 2017-01-18 11:36 | NUR ---
PATIENT DISCHARGING TO [facility].PATIENT WILL DIALYSIS AT [facility] IN [place], M-W-F- @ 10:00. AN APPOINTMENT WITH WITH DR. MAGAÑA WILL BE MADE AT TIME OF DISCHARGE FROM FACILITY. PATIENT WILL TRANSPORT THERE VIA AMBULANCE. MARY MENDEZ NOTIFIED
--- NOTE | 2017-01-18 13:32 | NUR ---
DUE TO CHANGE IN CONDTION , DISCHARGE TO [facility] IS ON HOLD, SPOKE WITH LAURA COSME LPN AT FACILITY. NURSE CALLED SON, PATIENT BEING ADMITTED TO ACUTE FLOOR
--- NOTE | 2017-01-18 15:00 | NUR ---
GERMANIA TRIMBLE WITH RENAL MD'S NOTIFIED OF PT CONDITION AND CHANGE OF STATUS. SHE GAVE OK TO TRANSFER PT TO ACUTE BED WITH DR WELSH'S ORDRS. DR WELSH DID CALL BACK AND GIVE OK TO TRANSFER TO ACUTE BED AND CANCEL TRANSFER. ATTEMPTS X3 TO CONTACT SON AND UPDATE HIM OF PT CONDITION BUT NO ANSWER. HAD SPOKEN WITH HIM ONCE EARLIER TODAY TO LET HIM KNOW OF HER STATUS CHANGE, ASK ABOUT HER CODE STATUS (HE WANTS FULL CODE) AND PENDING TRANSFER INFO. TOLD SON HER V/S HAD DECLINED AND LOWERED, HER HR HAD INCREASED AND SHE WAS NOT EATING OR DRINKING OR TAKING ANY MEDS. HE WANTED HER TRANSFERED TO [place] ANYHOW. TOLD SON WOULD UPDATE HIM OF HER STATUS BUT SO FAR HE HAS NOT ANSWERED HIS PHONE. PT WAS TRANSFERED TO ACUTE FLOOR (MED 2). REPORT GIVEN TO JENNY JEROINMO. PT V/S HAD INCREASED TO 101/56, HR 120, RESP 45\MIN
[2017-01-19] MEDS ORDERED: EPOGEN4000 U/ML SC (04:30)
== END 2017-01-18 14:45 | disposition home or self-care (01) | DRG 64 ==
LOC: D.REHAB 18:33
PROVIDERS: Internal Medicine Nephrology; ADMIT Emergency Medicine
PROC: 5A1D00Z (ICD-10-PCS; principal; 2017-01-17)
DX: I63.8 Other cerebral infarction (principal); N18.6 End stage renal disease; I13.2 Hypertensive heart and chronic kidney disease with heart failure and with stage 5 chronic kidney disease, or end stage renal disease; R13.12 Dysphagia, oropharyngeal phase; J44.9 Chronic obstructive pulmonary disease, unspecified; F32.9 Major depressive disorder, single episode, unspecified; R53.1 Weakness; I73.9 Peripheral vascular disease, unspecified; R41.82 Altered mental status, unspecified; D47.3 Essential (hemorrhagic) thrombocythemia; I65.29 Occlusion and stenosis of unspecified carotid artery; D64.9 Anemia, unspecified

== ENCOUNTER 2017-01-18 14:25 | Inpatient (IN) | payer MEDICARE ==
[2017-01-18] VITALS (9 sets, daily range): BP systolic 78–128; BP diastolic 30–55; BMI 22.1
[~2017-01-18] VITALS: Ht 167.6 cm; Wt 76.5 kg
--- NOTE | ~2017-01-18 | EC ---
PATIENT:YUNIOR MADRIGAL DATE OF SERVICE: 01/18/17 SEX: F MEDICAL RECORD: [id number] DATE OF : 41 LOCATION:[place] [address] AGE OF PATIENT: 71 ADMISSION DATE: 01/18/17 REFERRING PHYSICIAN: INTERPRETING PHYSICIAN: LAURA RASCON M.D. ECHOCARDIOGRAM REPORT ECHO CHARGES 4 ECHO COMPLETE CLINICAL DIAGNOSIS: PERICARDITIS ECHOCARDIOGRAPHIC MEASUREMENTS (adult normal given) AC root (d.<3.7cm) 2.8 LV Septum d (<1.2 cm> 2.0 Valve Excursion 1.0 LV Septum (systole) 2.2 Left Atria (s.<4.0cm> 5.3 LVPW d(<1.2cm) 1.9 RV (d.<2.3cm) 4.1 LVPW (sytole) 2.5 LV diastole(<5.6CM) 4.5 MV E-F(>70mm/sec) LV systole 3.0 LVOT Diameter 1.4 MV exc.(>10mm) 1.5 Est.ejection fraction (50-75%) Pericardial Effusion Y DOPPLER: LVIT A 184 E 134 LA RVSP 55 LVOT 172 AOP1/2T Asc. Ao 260 RVOT 115 RA PA 163 AV Gradient Peak 26.94 AV Mean 16.17 AV Area 1.1 MV Gradient Peak 20.47 MV Mean 8.21 MV Area COMMENTS: Park Keeper: Karley MANZO Perinatal Breastfeeding Assistant:2 Dr. Rascon TAPE# PACS DATE OF SERVICE: 01/25/2017 INDICATION: Pericarditis. REFERRING PHYSICIAN: Pardeep Barcenas MD. DESCRIPTION: Left ventricle is markedly hypertrophied. No wall motion abnormalities are seen. Estimated ejection fraction is 50%. The thickness of the septum and paredes were suspicious for amyloidosis. The mitral valve posterior leaflet is heavily calcified. There is decreased leaflet excursion ECHOCARDIOGRAM REPORT [id number] YUNIOR MADRIGAL noted. There is mild regurgitation noted otherwise. Left atrium is moderately dilated. The aortic valve may very well have a CoreValve. Peak gradient across the valve is 26 mmHg. There is mild insufficiency noted as well. Right ventricle is mildly dilated. Tricuspid valve is normal. There is moderate regurgitation seen. The right atrium has calcified structure at the base, which may represent a eustachian valve. Right ventricular systolic pressure is elevated at 55 mmHg. There is small pericardial effusion noted, which is not circumferential. There is no evidence of tamponade or compression of the right or left ventricle. IMPRESSION: 1. Marked left ventricular hypertrophy, ejection fraction of 55%. The wall thickness somewhat suspicious for amyloidosis. 2. Mild mitral regurgitation. 3. Mild aortic insufficiency. 4. Moderate tricuspid regurgitation with elevated pulmonary pressures. TRANSINT:[id number] Voice Confirmation ID: [id number] DOCUMENT ID: [id number] LAURA RASCON M.D. CC: [id number] DICTATION DATE: 01/25/17 1314 PACKAGING LINE ATTENDANT: 01/25/171946 DIS IN 01/25/17 [facility] [address] [place] [address]
--- NOTE | 2017-01-18 14:59 | NUR ---
RECEIVED REPORT FROM JENNY PEDRAZA. AWAITING PT ARRIVAL.
--- NOTE | 2017-01-18 15:00 | NUR ---
RECEIVED PT VIA BED FROM REHAB NURSE AND MOBILITY ARCHITECT MANAGER. PT IS NOT RESPONSIVE TO COMMAND. PTS EYES ARE OPEN. ON ROOM AIR. NO MONITOR. NO IV ACCESS CURRENTLY. VITAL SIGNS ARE FOLLOWS: HR 119, B/P 93/52, RR 32, AND TEMP 98.9. PT IS NOT ALERT OR ORIENTED. RESP ARE RAPID AND SHALLOW. DR. QUISPE ON UNIT. DR. QUISPE GAVE VERBAL ORDERS TO TRANSFER PT TO UNIT FOR FURTHER MONITORING. WILL DO ORDERD AND CONTINUE TO MONITOR.
--- NOTE | 2017-01-18 15:11 | NUR ---
CALLED REPORT TO JENNY LUNA IN ICU. WILL TRANSFER PT ORDERED BY DR. QUISPE.
--- NOTE | 2017-01-18 15:11 | NUR ---
REC'D PT FROM FLOOR, PT NONRESPONSIVE, DOES NOT OPEN EYES, DOES NOT MOVE EXTREMETIES, HR-117 SINUS TACHYCARDIA ON MONITOR, ROOM AIR. SHIFT ASSESSMENT COMPLETED, SEE FLOW SHEET. ROOM FREE OF CLUTTER, CALL LIGHT IN REACH, WILL CONTINUE TO MONITOR PT.
--- NOTE | 2017-01-18 15:21 | NUR ---
TRANSFERED PT TO ICU ORDERED BY DR. QUISPE (VERBAL ORDERS FROM UNIT). ABGS ORDERED PER DR. QUISPE. DR. QUISPE ON MED 2 NOW AND STATES HE PUT IN A BUNCH OF ORDERS. ONUR, CHARGE NURSE TAKING PTS CHART (FROM REHAB) TO ICU NOW. DUE TO TIME FRAME THAT PT WAS TRANSFERED TO MED 2 FROM REHAB, WAS UNABLE TO COMPLETE FULL SHIFT ASSESSMENT. PT ALSO HAD NO IV ACCESS FROM BEING TRANSFERED FROM REHAB. EQUAL CHEST RISE AND FALL SEEN. RESP ARE SHALLOW AND RAPID. PT IS NOT ALERT NOR ORIENTED. PULSES ARE WEAK (RADIAL, PEDAL) BILATERALLY. BOWELS ARE HYPOACTIVE IN ALL FOUR QUADRANTS. PTS MM ARE DRY. BILATERAL LOWER EXTREMITIES ARE SCALY AND DRY. RESERVE RIGHT ARM FOR AVF (+ THRILL). PT DOES NOT OBEY COMMAND OR RESPOND TO LOUD VOICE. RELAYED THIS INFORMATION TO ICU NURSES.
--- NOTE | 2017-01-18 16:00 | NUR ---
FRANCISCO CATHETER INSERTED, 10CC TO INFLATE BALLOON, CONCENTRATED, RED URINE RETURN. SAMPLE OBTAINED FOR UA AND URINE CULTURES.
[2017-01-18 16:33] LABS: CKMB 7.1 U/L (0.0-3.6)
[2017-01-18 16:39] LABS: CREATINE KINASE 1679 UL (21-215)
[2017-01-18 16:40] LABS: TROPONIN-I 0.232 ng/mL (0.000-0.060)
[2017-01-18 17:06] LABS: APPEARANCE TURBID (CLEAR); BILIRUBIN NEGATIVE (NEGATIVE); COLOR RED (YELLOW); EPITHELIAL CELLS 0-5 /hpf (0-5); GLUCOSE NEGATIVE (NEGATIVE); KETONE NEGATIVE (NEGATIVE); LEUKOCYTE ESTERASE 1+ (NEGATIVE); NITRITE NEGATIVE (NEGATIVE); PROTEIN 1+ mg/dL (NEGATIVE); RED CELLS - URINE >50 /hpf (0-5); SPECIFIC GRAVITY 1.015 (1.005-1.020); UROBILINOGEN NORMAL (NORMAL); WHITE CELLS - URINE >50 /hpf (0-5)
[2017-01-18 17:07] LABS: BACTERIA MANY /hpf (NONE SEEN)
--- NOTE | 2017-01-18 19:30 | NUR ---
ASSESSMENT COMPLETE. S1S2. PT LETHARGIC AND FLACCID. DOES NOT RESPOND TO PAINFUL STIMULI. PUPIL 2MM; FIXED. FISTULA TO RIGHT ARM; CDI. BRUIT AND THRILL PRESENT. RIGHT ARM RESERVE. RR SHALLOW; DIMINISHED BILATERALLY IN LOWER LOBES. SINUS TACHYCARDIA SHOWING ON MONITOR.
--- NOTE | 2017-01-18 21:50 | NUR ---
PT TRANSPORTED TO CT FOR HEAD CT.
--- NOTE | 2017-01-18 22:05 | NUR ---
PT ARRIVED FROM CT.
[2017-01-18 22:28] LABS: CKMB 8.1 U/L (0.0-3.6)
[2017-01-18 22:36] LABS: CREATINE KINASE 2033 UL (21-215)
[2017-01-18 22:37] LABS: TROPONIN-I 0.238 ng/mL (0.000-0.060)
--- NOTE | 2017-01-18 23:15 | NUR ---
REASSESSMENT COMPLETE. NO CHANGES FROM PREVIOUS ASSESSMENT. VSS. NO DISTRESS NOTED. SLIGHT HYPOTENSION NOTED; MAP ABOVE 65. WILL CONTINUE TO MONITOR CLOSELY.
[2017-01-19] VITALS (24 sets, daily range): BP systolic 109–143; BP diastolic 35–79; Ht 167.6 cm; Wt 76.5 kg
--- NOTE | 2017-01-19 01:30 | NUR ---
HYPOTENSION STILL NOTED. MAP ABOVE 65. PT REMAINS UNRESPONSIVE. FLACCID EXTREMITIES DOES NOT RESPOND TO PAINFUL STIMULI. WILL CONTINUE TO MONITOR CLOSELY.
--- NOTE | 2017-01-19 03:20 | NUR ---
REASSESSMENT COMPLETE. NO CHANGES FROM PREVIOUS ASSESSMENT. HYPOTENSION STILL NOTED. MONITORING CLOSELY
[2017-01-19] MEDS ORDERED: EPOGEN4000 U/ML SC (04:30)
[2017-01-19 05:52] LABS: BASOPHILS 0.2 % (0-2); EOSINOPHILS 0.1 % (0-7); HEMATOCRIT 32.5 % (36.0-48.0); HEMOGLOBIN 9.4 g/dL (12-16); IMMATURE GRANULOCYTES 1.1 % (0-5); MCH 31.1 pg (26.0-34.0); MCHC 28.9 g/dL (31.0-37.0); MCV 107.6 fL (80.0-100.0); MEAN PLATELET VOLUME 11.7 fL (7.4-10.4); MONOCYTES 13.1 % (2-11); NEUTROPHILS 74.5 % (40-80); RBC 3.02 10x6/uL (4.00-5.40); RDW 16.9 % (11.5-14.5); WBC 12.8 10x3/uL (4.8-10.8)
[2017-01-19 05:57] LABS: PLATELET COUNT 126 10x3/uL (130-400)
[2017-01-19 06:51] LABS: CARBON DIOXIDE 24.9 mmol/L (21.0-32.0); CHLORIDE - SERUM 99 mmol/L (98-107); CKMB 5.1 U/L (0.0-3.6); CREATININE - SERUM 7.6 mg/dL (0.6-1.3); POTASSIUM - SERUM 4.8 mmol/L (3.5-5.1); SODIUM 137 mmol/L (136-145); eGFR NON AFRICAN AMERICAN 6 mL/min (90-120)
--- NOTE | 2017-01-19 07:00 | NUR ---
PT REPORT REC'D, PT CARE ASSUMED. PT LETHARGIC, NO RESPONSE TO PAIN, NO VERBAL RESPONSE. VSS, ROOM AIR. LEFT HAND PIV S/L'ED. LEFT WRIST PIV WITH FLUIDS INFUSING, SEE FLOW SHEET. DRESSING CDI. RIGHT ARM FISTULA, BRUIT AND THRILL PRESENT. FRANCISCO CATHETER FREE OF KINKS TO GRAVITY WITH SCANT AMT OF RED CONCENTRATED URINE. SHIFT ASSESSMENT COMPLETED, SEE FLOW SHEET. ROOM FREE OF CLUTTER, CALL LIGHT IN REACH. ROOM CLOSE TO NURSES STATION, WILL CONTINUE TO MONITOR PT.
--- NOTE | 2017-01-19 07:01 | NUR ---
DR. AVILEZ SPEAKING WITH DR. OSMAN, INFORMED DR. SAMAYOA OF CONSULT. DR. OSMAN AT THE BEDSIDE.
[2017-01-19 07:29] LABS: CALCIUM 8.4 mg/dL (8.5-10.1); CREATINE KINASE 1757 UL (21-215); UREA NITROGEN 61 mg/dL (7-18)
--- NOTE | 2017-01-19 07:32 | NUR ---
DR. OSMAN AT THE BEDSIDE.
--- NOTE | 2017-01-19 08:15 | NUR ---
14 FR NGT PLACED IN RIGHT NARE, PLACEMENT CHECKED WITH AUSCULTATION. NGT CLAMPED PER DR. AVILEZ'S ORDER.
--- NOTE | 2017-01-19 09:00 | NUR ---
PT TRANSFERRED VIA BED TO CT.
--- NOTE | 2017-01-19 09:14 | NUR ---
PT RETURNED TO UNIT FROM CT SCAN.
--- NOTE | 2017-01-19 11:00 | NUR ---
PT RESTING WITH EYES CLOSED, BILAT EXTREMEITES FLACCID, PT DOES NOT OPEN EYES TO STIMULI, DOES NOT RESPOND TO TOUCH, IS NON VERBAL. REASSESSMENT COMPLETED, SEE FLOW SHEET. ROOM FREE OF CLUTTER, CALL LIGHT IN REACH, WILL CONTINUE TO MONITOR PT.
--- NOTE | 2017-01-19 14:38 | NUR ---
DIALYSIS COODINATOR: PATHWAYS: [facility] TUE/TUE/TUE @ 10:00AM. LORIE SAGE.
--- NOTE | 2017-01-19 15:00 | NUR ---
PT LETHARGIC, REPOSITIONED PT, PROPPED WITH PILLOWS. VSS, REASSESSMENT COMPLETED, SEE FLOW SHEET. ROOM FREE OF CLUTTER, CALL LIGHT IN REACH, WILL CONTINUE TO MONITOR PT.
--- NOTE | 2017-01-19 15:13 | NUR ---
PTS SON, DONAVON MADRIGAL AT THE BEDSIDE. ALL QUESTIONS ANSWERED, ASKED PT'S SON CODE STATUS, "I WANT YALL TO DO EVERYTHING YOU CAN IF YOU HAVE TO."
--- NOTE | 2017-01-19 15:42 | NUR ---
DIALYSIS COORDINATOR: PATHWAYS: Spoke with patient's OPHD clinic. Per clinic patient has been deteriorating for some time now. Family meeting a few weeks back regarding patient's situation. safety and health manager feels family may not understand fully the patient's current condition. DC spoke with patient's RN - Srinivas- in ICU regarding information from OPHD. LORIE SAGE.
--- NOTE | 2017-01-19 19:20 | NUR ---
ASSESSMENT COMPLETE. S1S2. NSR SHOWING ON MONITOR. PT UNRESPONSIVE TO DEEP STIMULI. DO NOT OPEN EYES. PUPILS 2MM; FIXED. VSS. NO DISTRESS NOTED. RR SHALLOW. ON 2L VIA NC. DIMINISHED BILATERALLY IN LOWER LOBES. RADIAL AND PEDAL PULSES WEAK. FISTULA TO RIGHT ARM; BRUIT AND THRILL PRESENT.
--- NOTE | 2017-01-19 22:30 | NUR ---
COMPLETE BED BATH GIVEN. PRESSURE ULCER AND EXCORIATION NOTED TO BUTTOCKS AND COCCYX. 4 INCHES IN DIAMETER. NO DISCHARGE; DRESSING APPLIED. SCANT AMOUNT OF FECAL MATTER.
--- NOTE | 2017-01-19 23:15 | NUR ---
REASSESSMENT COMPLETE. NO CHANGES FROM PREVIOUS ASSESSMENT. EXCORIATION AND SCABS/SORES NOTED TO BUTTOCKS. VSS. NO DISTRESS NOTED.
[2017-01-20] VITALS (24 sets, daily range): BP systolic 97–155; BP diastolic 35–510
--- NOTE | 2017-01-20 03:05 | NUR ---
REASSESSMENT COMPLETE. NO CHANGES FROM PREVIOUS ASSESSMENT. WILL CONTINUE TO MONITOR.
[2017-01-20 04:23] LABS: BASOPHILS 0.2 % (0-2); EOSINOPHILS 0.1 % (0-7); HEMOGLOBIN 9.4 g/dL (12-16); IMMATURE GRANULOCYTES 0.6 % (0-5); LYMPHOCYTES 9.4 % (15-50); MCH 31.5 pg (26.0-34.0); MCHC 30.3 g/dL (31.0-37.0); MEAN PLATELET VOLUME 11.3 fL (7.4-10.4); NEUTROPHILS 77.7 % (40-80); RBC 2.98 10x6/uL (4.00-5.40); WBC 12.5 10x3/uL (4.8-10.8)
[2017-01-20 04:25] LABS: PLATELET COUNT 216 10x3/uL (130-400)
[2017-01-20 06:05] LABS: VANCOMYCIN - RANDOM 13.1 ug/mL (10.0-20.0)
[2017-01-20 06:06] LABS: ANION GAP 20.8 mmol/L (8-16); PHOSPHOROUS 7.9 mg/dL (2.5-4.9); POTASSIUM - SERUM 4.8 mmol/L (3.5-5.1)
[2017-01-20 06:07] LABS: CALCIUM 9.4 mg/dL (8.5-10.1); CREATININE - SERUM 8.1 mg/dL (0.6-1.3)
--- NOTE | 2017-01-20 07:00 | NUR ---
PT REPORT REC'D, PT CARE ASSUMED. PT LETHARGIC, NON RESPONSIVE, VSS, 2LNC. LEFT WRIST PIV WITH FLUIDS INFUSING, SEE FLOW SHEET. LEFT HAND PIV S/L'ED, DRESSING CDI. FRANCISCO CATHETER FREE OF KINKS WITH SCANT RED CONCENTRATED URINE RETURN. SHIFT ASSESSMENT COMPELTED, SEE FLOW SHEET. REPOSITIONED PT, PROPPED WITH PILLOWS. ROOM FREE OF CLUTTER, CLOSE TO NURSES STATION, BED ALARM ON, CALL LIGHT IN REACH, WILL CONTINUE TO MONITOR PT.
--- NOTE | 2017-01-20 08:30 | NUR ---
10 CC RETURN TO DEFLATE FRANCISCO CATHETER BALLOON, DC'ED FRANCISCO CATHETER, TIP INTACT, WILL CONTINUE TO MONITOR PT.
--- NOTE | 2017-01-20 08:30 | NUR ---
PT'S SON DONAVON CALLED FOR UPDATE ON PT, UPDATE GIVEN.
--- NOTE | 2017-01-20 10:31 | NUR ---
JASON WITH DIALYSIS AT THE BEDSIDE SETTING UP.
--- NOTE | 2017-01-20 11:00 | NUR ---
PT LETHARGIC, UNRESPONSIVE, REASSESSMENT COMPLETED, SEE FLOW SHEET. ROOM FREE OF CLUTTER, CALL LIGHT IN REACH, WILL CONTINUE TO MONITOR PT.
--- NOTE | 2017-01-20 15:00 | NUR ---
REPOSITIONED PT, PROPPED WITH PILLOWS, VSS, REASSESSMENT COMPLETED, SEE FLOW SHEET. ROOM FREE OF CLUTTER, CALL LIGHT IN REACH, WILL CONTINUE TO MONITOR PT.
--- NOTE | 2017-01-20 15:17 | NUR ---
PT SON CALLED FOR UPDATE ON PT, INFORMED PT'S SON THAT THEY WERE UNABLE TO DIALYZE PT DUE TO BP DROPPING. INFORMED THAT WE TOOK PT'S FRANCISCO CATHETER OUT, AND BEGINNING TUBE FEEDINGS. ASKING ABOUT HOSPICE AND [facility]DC PLACEMENT, INFORMED PTS SON THAT IF HE WANTED PT ON HOSPICE AND FDC PLACEMENT, PT WOULD HAVE TO HAVE A SCREENING FROM HOSPICE, IF SHE WERE ACCEPTED, HE WOULD HAVE TO SPEAK WITH HOSPICE CASE MANAGEMENT/LONG WINDER TENDER TO HAVE ANY QUESTIONS ABOUT FDC PLACEMENT ANSWERED. "I DON'T WANT TO KILL MY MOTHER BY PUTTING HER ON HOSPICE." INFORMED PTS SON THAT PLACING PT ON HOSPICE WOULD NOT KILL HER, BUT RATHER KEEP HER COMFORTABLE. PTS SON "CONSIDERING HOSPICE, I WILL CALL YOU BACK IN A DAY OR TWO."
[2017-01-21] VITALS (14 sets, daily range): BP systolic 105–147; BP diastolic 27–57
--- NOTE | 2017-01-21 03:15 | NUR ---
REASSESSMENT COMPLETE. PT RESPONDS TO COMMANDS. SQUEEZES RIGHT HAND. UNABLE TO SQUEEZE OR MOVE LEFT SIDE. OPENS EYES SPONTANEOUS. PT GROANED UP REPOSITIONING.
--- NOTE | 2017-01-21 07:59 | NUR ---
SPOKE WITH LAB WHO STATED AFTER MULTIPLE ATTEMPTS AT DRAWING BLOOD THEY WERE UNABLE TO OBTAIN BLOOD DRAW FOR THIS AM LABS. PAGED DR AVILEZ AT THIS TIME TO NOTIFY FOR POSSIBLE FURTHER ORDERS. WAITING FOR CALLBACK.
--- NOTE | 2017-01-21 09:06 | NUR ---
RENAL SUPERVISOR TUMBLERS HERE. NOTIFIED THAT LAB COULD NOT DRAW BLOOD ON PT THIS AM. NOTIFIED RENAL SUPERVISOR TUMBLERS AT THIS TIME NOTED SHE HAD STATED TO HAVE BLOOD DRAWN DURING DIALYSIS WHICH IS SCHEDULED FOR TOMORROW BUT DON'T WORRY ABOUT LAB DRAWS FOR THIS MORNING. WILL CONTNIUE PLAN OF CARE.
--- NOTE | 2017-01-21 10:13 | NUR ---
REPORT GIVEN TO JOSEPH FOR PT TO BE TRANSFERRED TO ROOM 2103. WILL TRANSFER PT SHORTLY. WILL CONTINUE PLAN OF CARE.
--- NOTE | 2017-01-21 10:23 | NUR ---
Nutrition follow-up: Nepro infusing @ 30 ml/hr with 10 ml H2O flush Q hour. Labs reviewed Wt: 145# Order written to increase TF to goal rate of 40 ml/hr with same flush. RDN following.
--- NOTE | 2017-01-21 10:45 | NUR ---
BED BATH PROVIDED AT THIS TIME, MEPILEX TO COCCYX CHANGED AT THIS TIME WELL. NO ACUTE DISTRESS NOTED. NOTED PT MOVED RIGHT LEG SLIGHTLY AND RIGHT ARM WITH WITHDRAW TO STAFF BATHING PT. EYES OPENED SPONTANEOUSLY. PT SQUEEZED RIGHT HAND. NO ACUTE DISTRESS NOTED. WILL TRANSFER PT SHORTLY.
--- NOTE | 2017-01-21 10:54 | NUR ---
PT TRANSFERRED AT THIS TIME TO ROOM 2104 PER ORDERS. TRANSFERRED VIA BED WISH ASSISTANCE FROM HOSPITAL STAFF. NO ACUTE DISTRESS NOTED. NO FURTHER ACTIONS.
--- NOTE | 2017-01-21 10:54 | NUR ---
PT RECEIVED TO ROOM 2103 VIA BED, ACCOMPANIED BY TRAVIS RN, AND LONA RN. PT LETHARGIC AT THIS TIME. PUT HER ON 2L NC. NAD NOTED, CALL LIGHT IN REACH, WILL CONT PLAN OF CARE.
--- NOTE | 2017-01-21 12:30 | NUR ---
SON, AND FAMILY FRIEND AT BESIDE, ASKING IF PT WAS GOING TO GET DIALYSIS TODAY AND WHAT MEDS PT WAS TAKING. PROVIDED SON WITH ANSWER TO ALL QUESTIONS. SON STATED THAT HE WANTS DOCTORS TO CALL HIM AND KEEP HIM INFOMER ABOUT PT'S CONDITION. INFOMRED HIM THAT I WOULD PROVIDE DOCTOR'S WITH HIS PHONE NUMBER SO THAT HE CAN BE CONTACTED.
--- NOTE | 2017-01-21 17:37 | NUR ---
FEEDING STOPPED AT THIS TIME, RENVELA GIVEN VIA NG TUBE, AND FLUSHED WITH 40CC OF WATER. PT TOLERATED PROCEDURE WELL. NAD NOTED, PT STILL LETHARGIC WILL OPEN EYES A LITTLE WHEN SPOKEN TO. NO FAMILY AT BEDSIDE, NAD NOTED, WILL CONTINUE TO MONITOR.
--- NOTE | 2017-01-21 19:20 | NUR ---
RECEIVED REPORT, PT UNRESPONSIVE, BED IS LOW, SRX2,NG-TUBE- NEPRO-30 ML/HR, WILL INCREASE TO 40ML/HR PER ORDER, WILL CONTINUE PLAN OF CARE
--- NOTE | 2017-01-21 23:16 | NUR ---
PT RESTING WELL WITHOUT C/O OR DISTRESS NOTED. CALL LIGHT WITHIN REACH. NO NEEDS VOICED. WILL CONT TO MONITOR.
[2017-01-22] VITALS: BP 109/50
[2017-01-22 04:00] VITALS: BP 101/43
[2017-01-22 05:29] LABS: BASOPHILS 0.1 % (0-2); EOSINOPHILS 1.7 % (0-7); HEMATOCRIT 25.7 % (36.0-48.0); HEMOGLOBIN 7.8 g/dL (12-16); IMMATURE GRANULOCYTES 1.9 % (0-5); LYMPHOCYTES 9.6 % (15-50); MCH 31.2 pg (26.0-34.0); MCHC 30.4 g/dL (31.0-37.0); MCV 102.8 fL (80.0-100.0); MEAN PLATELET VOLUME 10.7 fL (7.4-10.4); NEUTROPHILS 78.7 % (40-80); PLATELET COUNT 183 10x3/uL (130-400); RDW 16.8 % (11.5-14.5)
[2017-01-22 05:48] LABS: ANION GAP 17.2 mmol/L (8-16); CARBON DIOXIDE 25.1 mmol/L (21.0-32.0); CREATININE - SERUM 9.2 mg/dL (0.6-1.3); POTASSIUM - SERUM 5.3 mmol/L (3.5-5.1); VANCOMYCIN - RANDOM 30.4 ug/mL (10.0-20.0)
--- NOTE | 2017-01-22 07:10 | NUR ---
RECEIVED REPORT. ASSUMED CARE OF PATIENT. CALL LIGHT WITHIN REACH. PATIENT ON 1ST STEP OVERLAY. PATIENT LETHARGIC. PUPILS 3MM AND REACTIVE BILATERAL. NGT WITH PULMOCARE AT 40 PER HOUR. IV FLUIDS INFUSING AT KVO RATE. PATIENT ATTEMPTS TO FOLLOW SIMPLE COMMANDS SUCH OPEN HER EYES ON COMMAND. APICAL PULSE 107.
--- NOTE | 2017-01-22 07:40 | NUR ---
RECEIVED NOTIFICATION FROM LAB, PATIENT WITH POSITIVE BLOOD CULTURES, GRAM + COCCI.
--- NOTE | 2017-01-22 07:50 | NUR ---
PATIENT PLACED IN CONTACT ISOLATION FOR POSITIVE BLOOD CULTURES.
[2017-01-22 08:26] VITALS: BP 114/33
--- NOTE | 2017-01-22 09:49 | NUR ---
RECEIVED VERBAL TELEPHONE ORDER AT THIS TIME FROM PATIENTS SON, DONAVON MADRIGAL FOR CONSENT TO ADMINISTER BLOOD PRODUCTS. WITNESSED BY LYLE FULTON RN. CONSENT PLACED ON CHART AT THIS TIME.
--- NOTE | 2017-01-22 09:52 | NUR ---
NO RENVELA POWDER RECEIVED FROM PHARMACY AT THIS TIME.
--- NOTE | 2017-01-22 10:46 | NUR ---
NOTIFIED BLOOD BANK WHEN PATIENT RECEIVES DIALYSIS AT BEDSIDE THIS CLOTH BURLER WILL RETRIEVE BLOOD PER JERI MARTÍNEZ.
--- NOTE | 2017-01-22 11:23 | NUR ---
TURNED AND REPOSITIONED. ODOR FROM SACRAL WOUNDS STRONG. ABLE TO SQUEEZE WITH RIGHT HAND. LEFT HAND FLACCID. ORAL CARE PROVIDED. BP 118/57.
[2017-01-22 11:58] VITALS: BP 103/48
[2017-01-22 15:53] VITALS: BP 140/68
--- NOTE | 2017-01-22 16:22 | NUR ---
1ST UNIT OF PRBS'C BEING ADMINISTERED AT THIS TIME WHILE PATIENT IS RECEIVING DIALYSIS AT BEDSIDE. NO DISTRESS.
--- NOTE | 2017-01-22 17:03 | NUR ---
2ND UNIT PRBC'S INFUSING AT THIS TIME WHILE ON DIALYSIS. NO DISTRESS.
--- NOTE | 2017-01-22 19:00 | NUR ---
INITIAL ROUNDS MADE. PT LYING IN BED, DIALYSIS NURSE AT BEDSIDE FOR HD. VSS. CONT TO MONITOR.
--- NOTE | 2017-01-22 19:30 | NUR ---
VSS, HD COMPLETE. PT LETHARGIC, RESPONDS TO PAIN STIMULI.
[2017-01-22 20:20] VITALS: BP 124/59
[2017-01-23 00:09] VITALS: BP 149/58
[2017-01-23 04:15] VITALS: BP 97/48
[2017-01-23 04:52] LABS: BASOPHILS 0.2 % (0-2); EOSINOPHILS 0.7 % (0-7); HEMATOCRIT 32.3 % (36.0-48.0); HEMOGLOBIN 10.3 g/dL (12-16); IMMATURE GRANULOCYTES 1.8 % (0-5); LYMPHOCYTES 5.6 % (15-50); MCH 30.6 pg (26.0-34.0); MCHC 31.9 g/dL (31.0-37.0); MCV 95.8 fL (80.0-100.0); MEAN PLATELET VOLUME 11.1 fL (7.4-10.4); MONOCYTES 8.7 % (2-11); PLATELET COUNT 154 10x3/uL (130-400); RBC 3.37 10x6/uL (4.00-5.40); RDW 19.9 % (11.5-14.5); WBC 12.9 10x3/uL (4.8-10.8)
[2017-01-23 05:06] LABS: CARBON DIOXIDE 26.7 mmol/L (21.0-32.0); POTASSIUM - SERUM 4.7 mmol/L (3.5-5.1); VANCOMYCIN - TROUGH 25.8 ug/mL (10.0-20.0)
[2017-01-23 05:14] LABS: CREATININE - SERUM 6.4 mg/dL (0.6-1.3)
--- NOTE | 2017-01-23 05:55 | NUR ---
PHLEBO IN ROOM FOR AM LAB DRAW.
--- NOTE | 2017-01-23 07:05 | NUR ---
RECEIVED REPORT. ASSUMED CARE OF PATIENT. CALL LIGHT WITHIN REACH. 1ST STEP OVERLAY PATENT. PATIENT REMAINS LETHARGIC. ABLE TO SQUEEZE THIS WRITERS HAND WITH HER RIGHT HAND. TUBE FEEDING INFUSING ORDERED. IV FLUIDS AT KVO RATE. PUPILS REACTIVE. NO DISTRESS. REMAINS IN CONTACT ISOLATION.
[2017-01-23 07:23] VITALS: BP 105/49
--- NOTE | 2017-01-23 11:00 | NUR ---
PATIENTS SON, DONAVON MADRIGAL, CALLED TO CHECK ON HIS MOTHER. THIS ANATOMY PROFESSOR COULD ONLY REPORT THEIR HAS BEEN NO CHANGE OF CONDITION. PATIENTS SON STATED THAT HE WORKS [employer] ENFORCEMENT OFFICER BUT HAS A COUPLE DAYS OFF AND WILL BE HERE IN THE MORNING. NOTIFIED RENAL UNDERGRADUATE INTERNSHIP THAT SON CALLED TO CHECK ON HIS MOTHER AND WILL BE HERE IN AM.
[2017-01-23 12:09] VITALS: BP 111/69
--- NOTE | 2017-01-23 14:15 | NUR ---
WOUND CARE PROVIDED TO SACRUM/COCCYX AND BILATERAL BUTTOCKS. AREA CLEANSED. NECROTIC, UNSTAGEABLE AREA TO SACRUM 6X6. BILATERAL BUTTOCKS WITH OPEN AREAS, ST.2 FROM. RESEMBLE SKINTEARS. MEPILEX APPLIED OVER NECROTIC AREA AND OPENED AREAS ON BUTTOCKS. BUTTPASTE ALSO APPLIED TO PREVENT FURTHER SKIN BREAKDOWN. INCONTINENT CARE PROVIDED, TURNED AND REPOSITIONED AT THIS TIME.
[2017-01-23 16:10] VITALS: BP 112/69
--- NOTE | 2017-01-23 16:52 | NUR ---
TURNED AND REPOSITIONED. RESTING PEACEFULLY. NO CHANGE OF CONDITION. PUPILS REACTIVE HOWEVER PATIENT REMAINS LETHARGIC. PATIENT DOES CONTINUE TO SQEEZE RIGHT HAND, UNABLE TO FOLLOW ANY OTHER COMMAND. TOLERATING NGT FEEDING WELL. NO DISTRESS. CALL LIGHT WITHIN REACH.
--- NOTE | 2017-01-23 20:58 | NUR ---
REC'D. LYING ON RT SIDE HOB UP35 DEGREES. NEPHRO INFUSING RIGHT NARE VIA NG TUBE.VIA FEEDING PUMP.PT. LETHARGIC RESPONDS TO SL.PAINFUL STIMULI.ON 1ST STEP.CONTACTISOLATION IN PROGRESS.WILL CONTINUE TO MONITOR FOR ANY CHGES AND FOLLOW CURRENT PLAN OF CARE.
[2017-01-23 21:38] VITALS: BP 98/33
[2017-01-24] VITALS (12 sets, daily range): BP systolic 70–135; BP diastolic 41–108
--- NOTE | 2017-01-24 00:28 | NUR ---
SR. PAYROLL PROCESSOR AT BEDSIDE FOR VS. NEEDS ADDRESSED AT THIS TIME. CALL LIGHT IN REACH. WILL CONT TO MONITOR.
[2017-01-24 04:53] LABS: BASOPHILS 0.2 % (0-2); EOSINOPHILS 0.2 % (0-7); HEMATOCRIT 32.2 % (36.0-48.0); HEMOGLOBIN 10.2 g/dL (12-16); IMMATURE GRANULOCYTES 1.9 % (0-5); LYMPHOCYTES 5.9 % (15-50); MCH 31.1 pg (26.0-34.0); MCHC 31.7 g/dL (31.0-37.0); MEAN PLATELET VOLUME 10.8 fL (7.4-10.4); MONOCYTES 10.2 % (2-11); NEUTROPHILS 81.6 % (40-80); PLATELET COUNT 174 10x3/uL (130-400); RBC 3.28 10x6/uL (4.00-5.40); RDW 19.7 % (11.5-14.5)
[2017-01-24 04:56] LABS: MCV 98.2 fL (80.0-100.0)
[2017-01-24 05:06] LABS: ANION GAP 18.8 mmol/L (8-16); CALCIUM 10.7 mg/dL (8.5-10.1); CARBON DIOXIDE 25.1 mmol/L (21.0-32.0); POTASSIUM - SERUM 4.9 mmol/L (3.5-5.1)
--- NOTE | 2017-01-24 08:00 | NUR ---
AM ROUNDS - PT APPEARS TO BE SLEEPING ON BACK WITH EQUAL AND NON LABORED BREATHING. YELLOW BAND ON PT. PT IS ON A 1ST STEP OVERLAY MATTRESS. NG TUBE, 40CC/HR. IV TO LEFT FA, NS @ 30CC/HR. WILL CONTINUE TO MONITOR
--- NOTE | 2017-01-24 11:02 | NUR ---
* Is the patient Alert and Oriented? Yes 0 * How many steps to enter\exit or inside your home? Ramp 0 * PCP Dr. Tab Greene 0 * Pharmacy [facility] * Preadmission Environment Home with Family 0 * ADLs Partial Dependent 0 * Partial ADLs (Assistance needed) Ambulation 0 * Equipment Walker Wheelchair 0 * List name and contact numbers for known caregivers / representatives who currently or will assist patient after discharge: Gurmeet Madrigal [phone] 0 * Additional services required to return to the preadmission environment? Yes 0 * Has this patient been hospitalized within the prior 30 days at any hospital? Yes 01/24/2017 10:59 DCP: Discharge Planning Patient Name: YUNIOR MADRIGAL Admission Status: Elective Accout number: [id number] Admission Date: 01-18-2017 : 1945 Admission Diagnosis:ALTERED MENTAL STATUS, UNSPECIFIED Attending: ABIGAIL Current LOS: 6 Primary Insurance: MEDICARE A & B Discharge Planning Comments: Patient not awake or alert. Call placed to sonSathish, to assess dc plans/needs. Prior to hospitalization, patient was living with her son. She used a wheel chair for mobility, but also has a walker. She has had [facility] in the past. She goes to [facility] MWF @ 1000 for HD - [facility] Bus transport her. Her son assists with ADL's as needed. CM will meet with son this afternoon to discuss POC/Prognosis/DC Options with him. CM will follow. Hat Forming Machine Feeder: Jillian Blas
--- NOTE | 2017-01-24 15:27 | NUR ---
01/24/2017 15:18 DCP: Discharge Planning CM met with son, Sathish, at bedside. He states his father (patients spouse) & his siblings are no longer living - he is the only immediate family member. Discussed prognosis & care options including hospice (home & facility), home health, SNF. Explained that patient will have to be able to get to and from HD in a wheel chair van & be able to sit in a recliner for HD. He agrees that patient will not be able to do that at this time. Code status at length - he wishes for patient to be a DNR - verbalized understanding, witnessed by Deysi Carter RN. Call placed to Lino Wood APN (Dr. Lopez) - order rec'd for DNR, which has been entered. Discussed hospice options with son. He is not ready to make that decision at this time. He states he will consider all options and be in touch. Answered all questions & concerns. CM will follow.
--- NOTE | 2017-01-24 16:25 | NUR ---
ASSESSMENT COMPLETE. PT LUNGS ARE VERY DIMINISHED. OPENS EYES TO PAIN. FLACCID EXTREMETIES. BOWEL SOUNDS HYPOACTIVE X4. PLACMENT OF NGT VERIFIED. 0 RESIDUAL. FOR OTHER ASSESSMENT FINDINGS SEE FLOWSHEET
--- NOTE | 2017-01-24 16:55 | NUR ---
PT SON'S CELL [phone]. SAID TO CALL IF HE IS NOT ANSWERING HIS HOME PHONE.
--- NOTE | 2017-01-24 17:10 | NUR ---
FAMILY AT BEDSIDE. UPDATE PROVIDED. QUESTIONS ANSWERED. DENIES NEEDS.
--- NOTE | 2017-01-24 19:10 | NUR ---
ASSESSMENT COMPLETED. SEE FLOW SHEET. DIALYSIS IN PROGRESS. O2 @ 6L VIA NC, CELIA LUNGS DIMINISHED. PT FLACCID. RT UPPER ARM FISTULA, IN USE AT THIS TIME. LT FA PIV, SITE WITHOUT REDNESS OR EDEMA WITH D5NS @ 30CC/HR VIA PUMP. RT NARE NGT WITH NEPRO @ 40CC/HR VIA PUMP. PPP. SR WITH PAC'S ON THE MONITOR.
--- NOTE | 2017-01-24 20:18 | NUR ---
PT IN SVT RATE 168. DR ESTEVEZ NOTIFIED. NEW ORDERS RECIEVED. WILL CONT TO MONITOR.
--- NOTE | 2017-01-24 21:00 | NUR ---
NO VISITOR'S AT THIS TIME.
--- NOTE | 2017-01-24 21:10 | NUR ---
SVT RATE 189. LOPRESSOR 5MG IV GIVEN PER ORDERS. DIALYSIS STOPPED AND BLOOD RETURNED. WILL CONT TO MONITOR.
--- NOTE | 2017-01-24 21:45 | NUR ---
Mrs. Gay had hemodialysis today via her right upper arm av graft from 1949 until 2113. Average blood flow was 400 mls/minute. Net fluid removed was only 229 mls. When I arrived the first time to dialyze the pt. I noted her respirations very labored and rapid. I called Ena Wood APN. with my concerns about possible aspiration. Pt. was moved to ICU to dialyze and a stat xray was ordered. Pre dialysis the pt. was tachycardic with rapid, labored respirations. At arourd 2109 pt started having tachycardia between 150's to 190's/ B/p was unstable. I stopped pulling fluid and gave a normal saline bolus of 200 mls. Pt. remained tachy 188. There were mutiple pvc's. After speaking with the charge nurse a decision was made to terminate the treatment due to the instability of the pt. Post vital signs were: B/P:103/67, HR: 144, Temp:00.7, Resps: 32.
--- NOTE | 2017-01-24 23:00 | NUR ---
REASSESSMENT COMPLETED. SR WITH PAC'S ON THE MONITOR.
[2017-01-25] VITALS (12 sets, daily range): BP systolic 77–155; BP diastolic 45–73
--- NOTE | 2017-01-25 01:00 | NUR ---
NO CHANGES AT THIS TIME. WILL CONT TO MONITOR.
--- NOTE | 2017-01-25 03:00 | NUR ---
REASSESSMENT COMPLETED. SR WITH PAC'S ON THE MONITOR.
[2017-01-25 03:52] LABS: BASOPHILS 0.2 % (0-2); EOSINOPHILS 0.4 % (0-7); HEMATOCRIT 31.7 % (36.0-48.0); HEMOGLOBIN 10.1 g/dL (12-16); IMMATURE GRANULOCYTES 2.1 % (0-5); LYMPHOCYTES 6.7 % (15-50); MCH 31.1 pg (26.0-34.0); MCHC 31.9 g/dL (31.0-37.0); MCV 97.5 fL (80.0-100.0); MEAN PLATELET VOLUME 11.3 fL (7.4-10.4); MONOCYTES 7.9 % (2-11); NEUTROPHILS 82.7 % (40-80); PLATELET COUNT 171 10x3/uL (130-400); RBC 3.25 10x6/uL (4.00-5.40); RDW 19.2 % (11.5-14.5); WBC 18.5 10x3/uL (4.8-10.8)
[2017-01-25 04:08] LABS: ALBUMIN 1.4 g/dL (3.4-5.0); ALKALINE PHOSPHATASE 109 U/L (46-116); ALT (SGPT) 38 U/L (10-68); BILIRUBIN - TOTAL 0.42 mg/dL (0.2-1.3); CALCIUM 11.2 mg/dL (8.5-10.1); CARBON DIOXIDE 29.1 mmol/L (21.0-32.0); CHLORIDE - SERUM 97 mmol/L (98-107); PHOSPHOROUS 4.8 mg/dL (2.5-4.9); POTASSIUM - SERUM 4.4 mmol/L (3.5-5.1); PROTEIN - SERUM 6.5 g/dL (6.4-8.2); SODIUM 137 mmol/L (136-145); VANCOMYCIN - TROUGH 21.1 ug/mL (10.0-20.0); eGFR NON AFRICAN AMERICAN 9 mL/min (90-120)
[2017-01-25 04:13] LABS: CALC OSMOLALITY 300 mosm/kg (275-300); CREATININE - SERUM 5.2 mg/dL (0.6-1.3); GLUCOSE 150 mg/dL (74-106); UREA NITROGEN 81 mg/dL (7-18)
--- NOTE | 2017-01-25 05:00 | NUR ---
NO CHANGES AT THIS TIME.
--- NOTE | 2017-01-25 07:15 | NUR ---
ASSESSMENT COMPLETE. PT UNRESPONSIVE. DOES NOT MOVE ANY EXTREMETIES. DOES NOT RESPOND TO STIMULI. CRACKLES INRUL, RML, MIRTHA. DIMINISHED LOWER LOBES. 2L NC. S1S2 NOTED, RADIAL AND EPDAL PULSES PALP. IN NSR NOW, BUT PREVIOUSLY IN SVT AND SINUS TACHYCARDIA. HAS R NARE NGT WITH PULM. RESIDUAL 30, PLACEMENT VERIFIED VIA AUDIBLE AIR INJECTION. HYPOACTIVE BOWEL SOUNDS. GENERALIZED WEAKNESS AND EDEMA. LT FOREARM PIV PATENT. SEE IV FLOWSHEET. FOR OTHER ASSESSMENT FINDINGS SEE FLOWSHEET
--- NOTE | 2017-01-25 08:18 | NUR ---
REQUESTED MISSING MEDS IN PYXIS FROM PHARMACY
--- NOTE | 2017-01-25 09:30 | NUR ---
RESIDUAL CURRENTLY 50 CC. FLUSHED NGT WITH 200 CC WATER WITH MEDS AND FLUSH. WILL MONITOR RESIDUALS.
--- NOTE | 2017-01-25 10:50 | NUR ---
RESIDUALS REMAIN OVER 350, STOPPING FEED FOR NOW.
--- NOTE | 2017-01-25 11:00 | NUR ---
CALLED PT'S SON'S HOME PHONE TRYING TO REACH HIM. LEFT MESSAGE TO CALL ICU
--- NOTE | 2017-01-25 11:08 | NUR ---
PT'S RESIDUAL >400, PT HAS COUGH. HOB 40 DEGREES. HOLDING TUBE FEED TO PREVENT ASPIRATION AT THIS TIME. WILL RECHECK RESIDUAL IN 1HR
--- NOTE | 2017-01-25 11:30 | NUR ---
SPOKE WITH PATIENT'S SON. LET HIM KNOW PT'S HR DROPPED TO 40'S. LET HIM KNOW PATIENT IS VERY UNSTABLE AND HER HEART IS FAILING. CONFIRMED WITH SON THAT PATIENT'S CODE STATUS IS DNR. I ASKED HIM SPECIFICALLY, "IF HER HEART STOPS, DO YOU WANT US TO DO COMPRESSION TO KEEP HER ALIVE HOW SHE IS NOW?" HE SAID "NO, I DONT WANT YOU TO."
--- NOTE | 2017-01-25 11:40 | NUR ---
NOTIFIED DR. AVILEZ'S SPRAY MACHINE LOADER JERI THAT PATIENT IS ASYSTOLE. REQUESTED DR. PATEL TO PRONOUNCE HE IS ON THE UNIT.
--- NOTE | 2017-01-25 12:01 | NUR ---
TRIED TO CALL PATIENT'S SON, UNABLE TO REACH HIM
--- NOTE | 2017-01-25 12:19 | NUR ---
PT'S SON RETURNED CALL. SAID HE IS ON HIS WAY UP HERE NOW AND WANTS TO WAIT TO CHOOSE A HOME
--- NOTE | 2017-01-25 14:55 | NUR ---
FAMILY AT BEDSIDE. NOTIFED [facility] PER PATIENT'S FAMILY MEMBER REQUEST. PT'S SON IS DONAVON MADRIGAL. HE REQUESTED THAT SHE GO TO THE HOME WITH HER RINGS ON AND THAT HE WOULD TAKE HER BAGS OF CLOTHES AND OTHER BELONGINGS. PT HAS 4 GOLD COLORED RINGS ON. ONE WITH A LARGE CLEAR STONE AND OTHERS WITH EMBELISHMENTS AND SMALL CLEAR STONES.
--- NOTE | 2017-01-25 15:58 | NUR ---
HOME HERE TO THREAD PULLER PATIENT. VERIFIED CORRECT HOME. HAD HIM SIGN PAPERWORK
== END 2017-01-25 16:04 | DRG 64 ==
LOC: D.ICU 14:25 → D.M2 14:25 → D.ICU 15:20 → D.M2 01-21 10:56 → D.ICU 01-24 16:20
PROVIDERS: Internal Medicine Nephrology; ADMIT Internal Medicine Nephrology
PROC: 0T9B70Z Drainage of Bladder with Drainage Device, Via Natural or Artificial Opening (ICD-10-PCS; principal; 2017-01-18)
DX: I63.521 Cerebral infarction due to unspecified occlusion or stenosis of right anterior cerebral artery (principal); N18.6 End stage renal disease; A41.51 Sepsis due to Escherichia coli [E. coli]; R40.2313 Coma scale, best motor response, none, at hospital admission; R40.2113 Coma scale, eyes open, never, at hospital admission; R40.2213 Coma scale, best verbal response, none, at hospital admission; I12.0 Hypertensive chronic kidney disease with stage 5 chronic kidney disease or end stage renal disease; E83.52 Hypercalcemia; R62.7 Adult failure to thrive; J44.9 Chronic obstructive pulmonary disease, unspecified; I63.511 Cerebral infarction due to unspecified occlusion or stenosis of right middle cerebral artery; F32.9 Major depressive disorder, single episode, unspecified; Z99.2 Dependence on renal dialysis; Z95.2 Presence of prosthetic heart valve; Z86.73 Personal history of transient ischemic attack (TIA), and cerebral infarction without residual deficits